=== PATIENT | female | born 1930 | race Caucasian/White ===

== ENCOUNTER → 2016-08-14 | Outpatient (CLI) | payer OTHER ==
[~2016-08-14] MED LIST: ACET-1311; AMLO-110 PO; ASCA500 PO; ASPI81TA28 PO; CALC600T37 PO; CEPH500C; CRAN500C2 PO; DLCS; DOCU100C31 PO; DRV100; DXY100; FERR1TAB13 PO; FLEETS; FLTE; FRRS300; FURO-85 PO; ISOS30TA3 PO; KFL/250 PO; LACT10SO17; LISI-461 PO; LSX20; MCTP EXT; MED PASS; METAMUCIL; METH1TAB66 PO; METO50TA7 PO; MORP15TA PO; MORP15TA19 PO; MULT-922 PO; OXYB5TAB74 PO; PANT40TA; POTA10CA28; POTA10CA28 PO; PRLSR20 PO; PROM1SUP19; PROM25TA; PROSTAT; PROVENTIL MDI; STRESS; TRAM-10; [UNRECOGNIZED DRUG - OTHER]; [UNRECOGNIZED DRUG - OTHER]
[2016-08-14 13:13] LABS: BASO % 0.6 %; BASO ABS # 0.05 K/uL (0-0.2); COMPLETE YES; EOS % 1.5 %; HEMATOCRIT 42.3 % (37-47); IG% 0.1 %; LYMPH % 19.9 %; LYMPH ABS # 1.64 K/uL (1.2-3.4); MEAN CELL VOLUME 85.6 fL (80-100); MEAN CORPUSCULAR HEMOGLOBIN 27.9 pg (25-34); MEAN CORPUSCULAR HGB CONC 32.6 g/dl (32-36); MEAN PLATELET VOLUME 10.3 fL (7.4-10.4); MONO % 5.7 %; NEUT % 72.2 %; PLATELET COUNT 338 K/uL (130-400); RED BLOOD COUNT 4.94 M/uL (4.2-5.4); WHITE BLOOD COUNT 8.25 K/uL (4.8-10.8)
[2016-08-14 13:20] LABS: ALT/SGPT 13 U/L (12-78); BLOOD UREA NITROGEN 15 mg/dl (7-18); BUN/CREATININE RATIO 13.9 (10-20); CALCIUM 8.7 mg/dl (8.5-10.1); CARBON DIOXIDE 25 mmol/L (21-32); CHLORIDE 105 mmol/L (98-107); GLUCOSE 112 mg/dl (70-99); SODIUM 140 mmol/L (136-145)
[2016-08-14 13:23] LABS: ALB/GLOB RATIO 0.9 (0.9-2); ALKALINE PHOSPHATASE 118 U/L (45-117); AST/SGOT 16 U/L (15-37); CHOLESTEROL 145 mg/dl (0-200); CHOLESTEROL/HDL RATIO 2.5; HDL CHOLESTEROL 59 mg/dl; LDL CHOLESTEROL CALCULATED 59 mg/dl; TRIGLYCERIDES 137 mg/dl (0-150); VERY LOW DENSITY LIPOPROT CALC 27 mg/dl
== END | disposition home or self-care (01) ==
LOC: C.LAB1850 11:36
PROVIDERS: ATTEND Internal Medicine
DX: G89.29 Other chronic pain (principal); I10 Essential (primary) hypertension

== ENCOUNTER 2016-09-29 21:16 | Inpatient (IN) | payer OTHER ==
[~2016-09-29] VITALS: Ht 160 cm; Wt 79.8 kg
[~2016-09-29 21:16] MED LIST changes: -AMLO-110 PO; -ASCA500 PO; -ASPI81TA28 PO; -CALC600T37 PO; -CRAN500C2 PO; -DOCU100C31 PO; -FERR1TAB13 PO; -FURO-85 PO; -KFL/250 PO; -MCTP EXT; -METH1TAB66 PO; -MORP15TA PO; -MORP15TA19 PO; -MULT-922 PO; -OXYB5TAB74 PO; -POTA10CA28 PO; -PRLSR20 PO
[2016-09-29 21:53] LABS: BASO % 0.2 %; BASO ABS # 0.03 K/uL (0-0.2); COMPLETE YES; EOS % 0.3 %; HEMATOCRIT 41.6 % (37-47); IG% 0.4 %; LYMPH % 13.9 %; LYMPH ABS # 1.92 K/uL (1.2-3.4); MEAN CELL VOLUME 84.6 fL (80-100); MEAN CORPUSCULAR HEMOGLOBIN 28.5 pg (25-34); MEAN CORPUSCULAR HGB CONC 33.7 g/dl (32-36); MEAN PLATELET VOLUME 10.3 fL (7.4-10.4); MONO % 7.6 %; NEUT % 77.6 %; PLATELET COUNT 334 K/uL (130-400); RED BLOOD COUNT 4.92 M/uL (4.2-5.4); WHITE BLOOD COUNT 13.86 K/uL (4.8-10.8)
[2016-09-29] MEDS ORDERED: DTR/5 PO (22:02)
[2016-09-29] MEDS ORDERED: MORP15TA19 PO (22:02)
[2016-09-29] MEDS ORDERED: MORP15TA PO (22:02)
[2016-09-29] MEDS ORDERED: AMLO-110 PO (22:02)
[2016-09-29] MEDS ORDERED: PRLSR20 PO (22:02)
[2016-09-29] MEDS ORDERED: FURO-85 PO (22:02)
[2016-09-29] MEDS ORDERED: CALC600T37 PO (22:02)
[2016-09-29] MEDS ORDERED: ASPI81TA28 PO (22:02)
[2016-09-29] MEDS ORDERED: DOCU100C31 PO (22:02)
[2016-09-29] MEDS ORDERED: MULT-922 PO (22:02)
[2016-09-29] MEDS ORDERED: CRAN500C2 PO (22:02)
[2016-09-29] MEDS ORDERED: METH1TAB66 PO (22:02)
[2016-09-29] MEDS ORDERED: POTA10CA28 PO (22:02)
[2016-09-29] MEDS ORDERED: FERR1TAB13 PO (22:02)
[2016-09-29] MEDS ORDERED: ASCA500 PO (22:02)
[2016-09-29 22:05] LABS: INR 1.1 (0.9-1.1); PARTIAL THROMBOPLASTIN RATIO 1.1; PROTHROMBIN TIME (PATIENT) 12.2 SECONDS (9.0-12.0)
[2016-09-29 22:12] LABS: BUN/CREATININE RATIO 28.9 (10-20); CALCIUM 8.5 mg/dl (8.5-10.1); MAGNESIUM 2.5 mg/dl (1.8-2.4); POTASSIUM 3.5 mmol/L (3.5-5.1)
[2016-09-29 22:22] LABS: THYROID STIMULATING HORMONE 2.67 uIu/ml (0.300-4.500)
--- NOTE | 2016-09-29 22:42 | DIAGNOSTIC IMAGING REPORT ---
LEFT FEMUR 2 VIEWS ROUTINE, LEFT KNEE 1 OR 2 VIEWS ROUTINE CLINICAL HISTORY: fall. Left leg and knee pain. COMPARISON STUDY: None. FINDINGS: The bones are osteopenic. Soft tissue swelling at the knee with a small lipohemarthrosis. The proximal femur is intact. No dislocation. There is impacted and slightly comminuted fracture at the distal metaphysis of the left femur. This does not appear to extend to the articular surface. There are essentially nondisplaced oblique fractures within the proximal metaphysis of the tibia and fibula. These do not extend to the articular surface. There is greater than expected sclerosis within the distal left femur. This raises the possibility of a bone infarct. IMPRESSION: Left distal femur, proximal tibia, and proximal fibular fractures as described above. Electronically signed by: Austyn Cox M.D. 09/29/2016 10:40 PM Dictated Date/Time: 09/29/2016 10:36 PM
--- NOTE | 2016-09-29 22:43 | DIAGNOSTIC IMAGING REPORT ---
CHEST ONE VIEW PORTABLE HISTORY: Fall. EVALUATE WEAKNESS COMPARISON: Chest 11/17/2005. FINDINGS: The heart is mildly enlarged. This is improved. Small linear scarlike density at the left lung base. Otherwise, the lungs are clear. No pleural effusions. No pneumothorax. Mildly tortuous thoracic aorta, unchanged. IMPRESSION: Mild cardiomegaly which is improved. Otherwise, no acute process within the chest. Electronically signed by: Austyn Cox M.D. 09/29/2016 10:42 PM Dictated Date/Time: 09/29/2016 10:41 PM
[2016-09-29] MEDS ORDERED: SODIUM CHLORIDE 0.9% 1000ML 1,000 ML IV STA (22:48)
[2016-09-30] VITALS (15 sets, daily range): BP systolic 81–100; BP diastolic 51–68; PULSE 61–113; TEMP 35.9–36.5; O2SAT 93–99; Ht 160 cm; Wt 79.8 kg
[2016-09-30] MEDS ORDERED: ONDANSETRON INJ 2 MG/ML 2 ML VIAL IV PRN
--- NOTE | 2016-09-30 00:15 | EMERGENCY ROOM VISIT NOTE ---
History Report prepared by Eric: Vicki Gonzalez Under the Supervision of: Dr. Matt Gonzalez M.D. First contact with patient: 21:19 Chief Complaint: LEG PAIN,LEG INJURY Stated Complaint: LEG PAIN History of Present Illness The patient is an 85 year old female who presents to the Emergency Room with complaints of a sudden fall that occurred around 1200 today. Per EMS, the patient had fallen while being lifted from stand assist chair around 1200 today. The patient has a history of paraplegia, and her daughters note that the patient does not use her legs at all. The patient denies any leg pain. The patient's daughters deny the patient having any previous leg injuries or seeing any orthopedic surgeon in the area. The patient notes bilateral shoulder pain due to being lifted after the fall. The patient's daughter notes that the patient has been taking increased ibuprofen this past week and has been having hemoptysis. The patient's daughter notes that the patient has had a decrease in appetite recently. She states that the patient's catheter has recently been leaking, and the patient is unsure of the last day it was changed. The patient notes a history of atrial fibrillation. Pt denies LOC, headache, visual changes, neck pain, chest pain, breathing difficulties, nausea , vomiting, abdominal pain, back pain, numbness, weakness, open wounds, active bleeding, melena, hematochezia, or other complaints. Source of History: patient, family (daughters), EMS Onset: 1200 today Position: other (global) Quality: other (fall) Timing: other (sudden) Note: Associated Symptoms: bilateral shoulder pain, hemoptysis, decrease in appetite. Review of Systems See HPI for pertinent positives and negatives. A total of ten systems were reviewed and were otherwise negative. Past Medical & Surgical Medical Problems: (1) Atrial fibrillation (2) Fracture of distal femur (3) Fracture of proximal end of tibia and fibula Family History Noncontributory secondary to age. Social History Marital Status: single Occupation Status: retired Current/Historical Medications Scheduled Amlodipine (Norvasc), 5 MG PO QAM Ascorbic Acid (Vitamin C), 500 MG PO DAILY Aspirin (Aspirin Ec), 81 MG PO DAILY Calcium (Calcium), 600 MG PO DAILY Cranberry (Vaccinium Macrocarp (Cranberry), 500 MG PO DAILY Docusate Sodium (Docusate Sodium), 250 MG PO DAILY Ferrous Sulfate (Kp Ferrous Sulfate), 1 TAB PO TID Furosemide (Lasix), 20 MG PO QAM Isosorbide Mononitrate Ext Rel (Imdur Ext Rel), 30 MG PO QAM Lisinopril (Zestril), 10 MG PO QAM Methylcellulose (Laxative) (Fiber Therapy), 500 MG PO DAILY Metoprolol Succ (Toprol Xl) (Toprol-Xl), 50 MG PO QAM Multiple Vitamins W/ Minerals (Multivitamin Adults), 1 TAB PO DAILY Omeprazole (Prilosec), 20 MG PO DAILY Oxybutynin Chloride (Ditropan), 5 MG PO BID Potassium Chloride (Micro-K Ext Rel), 10 MEQ PO BID Scheduled PRN Morphine Cont Rel (Ms Contin), 15 MG PO Q12 PRN for Pain Morphine Sulfate Ir (Morphine Sulfate Ir), 15 MG PO QAM PRN for Pain Allergies Coded Allergies: Oxycodone (Verified Allergy, Severe, "LOOPEY"-CONFUSED, 09/29/16) Physical Exam Vital Signs Date Time Temp Pulse Resp B/P Pulse Ox O2 Delivery O2 Flow Rate FiO2 09/29/16 23:41 95 20 111/58 Room Air 09/29/16 23:09 87/72 09/29/16 22:42 111 18 82/54 94 Room Air 09/29/16 21:47 95 Room Air 09/29/16 21:29 116 09/29/16 21:23 36.6 108 16 114/73 96 Room Air Physical Exam GENERAL: Awake, alert, tired-appearing, in no distress HENT: Normocephalic, atraumatic. Oropharynx unremarkable. EYES: Normal conjunctiva. Sclera non-icteric. NECK: Supple. No nuchal rigidity. FROM. No JVD. RESPIRATORY: Clear to auscultation. CARDIAC: Irregular rhythm, tachycardic rate. Extremities warm and well perfused. Pulses equal. ABDOMEN: Soft, non-distended. No tenderness to palpation. No rebound or guarding. No masses. RECTAL: Deferred. MUSCULOSKELETAL: Chest examination reveals no tenderness. The back is symmetrical on inspection without obvious abnormality. There is no CVA tenderness to palpation. No joint edema. LOWER EXTREMITIES: Cyanosis discoloration to feet bilaterally. No tenderness to the left leg. Ecchymosis over the proximal lower left leg medially. Laxity to varus and valgus strain of the left knee. crepitus noted. Good distal pulses. NEURO: Normal sensorium. No sensory or motor deficits noted. SKIN: No rash or jaundice noted. Medical Decision & Procedures Laboratory Results 09/29/16 21:34 Red Blood Count 4.92, Mean Corpuscular Volume 84.6, Mean Corpuscular Hemoglobin 28.5, Mean Corpuscular Hemoglobin Concent 33.7, Mean Platelet Volume 10.3, Neutrophils (%) (Auto) 77.6, Lymphocytes (%) (Auto) 13.9, Monocytes (%) (Auto) 7.6, Eosinophils (%) (Auto) 0.3, Basophils (%) (Auto) 0.2, Neutrophils # (Auto) 10.76, Lymphocytes # (Auto) 1.92, Monocytes # (Auto) 1.06, Eosinophils # (Auto) 0.04, Basophils # (Auto) 0.03 09/29/16 21:34 Test 09/29/16 21:34 White Blood Count 13.86 K/uL (4.8-10.8) Red Blood Count 4.92 M/uL (4.2-5.4) Hemoglobin 14.0 g/dL (12.0-16.0) Hematocrit 41.6 % (37-47) Mean Corpuscular Volume 84.6 fL (80-100) Mean Corpuscular Hemoglobin 28.5 pg (25-34) Mean Corpuscular Hemoglobin Concent 33.7 g/dl (32-36) Platelet Count 334 K/uL (130-400) Mean Platelet Volume 10.3 fL (7.4-10.4) Neutrophils (%) (Auto) 77.6 % Lymphocytes (%) (Auto) 13.9 % Monocytes (%) (Auto) 7.6 % Eosinophils (%) (Auto) 0.3 % Basophils (%) (Auto) 0.2 % Neutrophils # (Auto) 10.76 K/uL (1.4-6.5) Lymphocytes # (Auto) 1.92 K/uL (1.2-3.4) Monocytes # (Auto) 1.06 K/uL (0.11-0.59) Eosinophils # (Auto) 0.04 K/uL (0-0.5) Basophils # (Auto) 0.03 K/uL (0-0.2) RDW Standard Deviation 53.2 fL (36.4-46.3) RDW Coefficient of Variation 17.0 % (11.5-14.5) Immature Granulocyte % (Auto) 0.4 % Immature Granulocyte # (Auto) 0.05 K/uL (0.00-0.02) Prothrombin Time 12.2 SECONDS (9.0-12.0) Prothromb Time International Ratio 1.1 (0.9-1.1) Activated Partial Thromboplast Time 28.7 SECONDS (21.0-31.0) Partial Thromboplastin Ratio 1.1 Anion Gap 13.0 mmol/L (3-11) Est Creatinine Clear Calc Drug Dose 19.9 ml/min Estimated GFR () 25.6 Estimated GFR (Non- 22.0 BUN/Creatinine Ratio 28.9 (10-20) Calcium Level 8.5 mg/dl (8.5-10.1) Magnesium Level 2.5 mg/dl (1.8-2.4) Total Bilirubin 0.7 mg/dl (0.2-1) Direct Bilirubin 0.3 mg/dl (0-0.2) Aspartate Amino Transf (AST/SGOT) 110 U/L (15-37) Alanine Aminotransferase (ALT/SGPT) 49 U/L (12-78) Alkaline Phosphatase 95 U/L (45-117) Total Protein 7.0 gm/dl (6.4-8.2) Albumin 3.0 gm/dl (3.4-5.0) Lipase 76 U/L (73-393) Thyroid Stimulating Hormone (TSH) 2.670 uIu/ml (0.300-4.500) Laboratory results reviewed by me Medications Administered Medications (Trade) Dose Ordered Sig/Adam Route Start Time Stop Time Status Last Admin Dose Admin Sodium Chloride (Nss 1000ml) 1,000 ml @ 999 mls/hr Q1H1M STAT IV 09/29/16 22:48 09/29/16 23:48 DC 09/29/16 22:48 999 MLS/HR ECG Indication: other (hx of atrial fibrillation) Rate (beats per minute): 107 Rhythm: atrial fibrillation (with RVR) Findings: no acute ischemic change, no ectopy ED Course 2127: The patient was evaluated in room A2. A complete history and physical exam was performed. 2220: I reevaluated the patient and she is resting comfortably. Medical Decision Triage Nursing notes reviewed. The patient's presentation and history were concerning for an accident a fall. Etiologies such as soft tissue injury, fracture, dislocation, neurovascular compromise, compartment syndrome, electrolyte abnormality, infection, as well as others were entertained. The patient patient was evaluated. Her left leg examination was very concerning. She was in A. fib as well. The patient underwent x-ray imaging and this revealed a fracture of the distal femur, proximal fibula, and proximal tibia. She was placed in a knee immobilizer. ECG revealed A. fib. The blood pressure was mildly low and the patient was given IV fluids. She responded well to this. Her CBC revealed mild leukocytosis. Chemistry panel revealed dehydration. Urinalysis was ordered but was pending. Consultation was made with Dr. Louise at 2250 hrs. He returned the call at 2253. I discussed case. He agreed with the knee immobilizer. He will see the patient in consultation. The patient was reassessed at 2300 hrs. and informed. She was reassessed again at 2320. A consultation was placed with Dr. Master Ponce at 2325. I discussed case with him at 2330. He will see the patient for admission. The patient did not request any analgesia as she has her pre- existing neurologic issues and could not feel the fractures. The chart was completed utilizing [employer] Speech voice recognition software. Grammatical errors, random word insertions, pronoun errors, and incomplete sentences are an occasional consequence of this system due to software limitations, ambient noise, and hardware issues. Any formal questions or concerns about the content, text, or information contained within the body of this dictation should be directly addressed to the physician for clarification. Impression Primary Impression: Fracture of distal femur Additional Impressions: Fracture of proximal end of tibia and fibula Atrial fibrillation Dehydration Scribe Attestation The scribe's documentation has been prepared under my direction and personally reviewed by me in its entirety. I confirm that the note above accurately reflects all work, treatment, procedures, and medical decision making performed by me. Departure Information Dispostion Being Evaluated By Hospitalist Referrals ,Oscar Franz M.D. (PCP) Patient Instructions My [facility] Problem Qualifiers
[2016-09-30] MEDS: SODIUM CHLORIDE 0.9% 1000ML 1,000 ML IV SCH ×3 (02:24→22:43)
[2016-09-30] MEDS: NITROGLYCERIN OINT 2% 1GM PACKET EXT SCH ×4 (04:00→22:00)
--- NOTE | 2016-09-30 05:11 | History and Physical ---
History & Physical Date & Time of Service: Sep 30, 2016 at 04:57 Chief Complaint: Fx Of Distal Femur,Fx Of Proximal End Tibia/Fibula Primary Care Physician: Oscar Prieto M.D. History of Present Illness Source: patient, family The patient is an 85-year-old female, with history of paraplegia, that fell while being lifted from a stand assist chair around 1200 hrs. today. Her left leg was noted by EMS to be more freely moving in the lower extremity. She has not had any sensation in her lower extremities, and therefore does not steroids any leg pain. The patient's daughters note that she's had a decreased appetite recently, has been taking more ibuprofen during the past week. Patient also has history of atrial fibrillation. Past Medical/Surgical History Medical Problems: (1) Atrial fibrillation Status: Chronic Social History Smoking Status: Never Smoker Smokeless Tobacco Use: No Alcohol Use: none Drug Use: none Marital Status: single Occupational Status: retired Immunizations History of Influenza Vaccine: Unknown History of Tetanus Vaccine?: Unknown History of Pneumococcal: Unknown History of Hepatitis B Vaccine: Unknown Multi-Drug Resistant Organisms History of MDRO: No Allergies Coded Allergies: Oxycodone (Verified Allergy, Severe, "LOOPEY"-CONFUSED, 09/29/16) Home Medications Scheduled Amlodipine (Norvasc), 5 MG PO QAM Ascorbic Acid (Vitamin C), 500 MG PO DAILY Aspirin (Aspirin Ec), 81 MG PO DAILY Calcium (Calcium), 600 MG PO DAILY Cranberry (Vaccinium Macrocarp (Cranberry), 500 MG PO DAILY Docusate Sodium (Docusate Sodium), 250 MG PO DAILY Ferrous Sulfate (Kp Ferrous Sulfate), 1 TAB PO TID Furosemide (Lasix), 20 MG PO QAM Isosorbide Mononitrate Ext Rel (Imdur Ext Rel), 30 MG PO QAM Lisinopril (Zestril), 10 MG PO QAM Methylcellulose (Laxative) (Fiber Therapy), 500 MG PO DAILY Metoprolol Succ (Toprol Xl) (Toprol-Xl), 50 MG PO QAM Multiple Vitamins W/ Minerals (Multivitamin Adults), 1 TAB PO DAILY Omeprazole (Prilosec), 20 MG PO DAILY Oxybutynin Chloride (Ditropan), 5 MG PO BID Potassium Chloride (Micro-K Ext Rel), 10 MEQ PO BID Scheduled PRN Morphine Cont Rel (Ms Contin), 15 MG PO Q12 PRN for Pain Morphine Sulfate Ir (Morphine Sulfate Ir), 15 MG PO QAM PRN for Pain Review of Systems The patient denies chest pain, palpitations, shortness of breath, cough, lower extremity swelling, vision change, hearing change, sore throat, fevers, chills, sweats, weight change, fatigue, nausea, vomiting, abdominal pain, pelvic pain, blood in urine or stool, dysuria, urinary frequency or urgency, lightheadedness , dizziness, headache, memory loss, rash, night sweats, or allergy symptoms. The review of systems is otherwise negative other than for that already noted above, and at least 10 systems have been reviewed. Physical Exam Vital Signs Date Time Temp Pulse Resp B/P Pulse Ox O2 Delivery O2 Flow Rate FiO2 09/30/16 03:03 84 94/56 09/30/16 01:55 35.9 102 16 100/58 94 Nasal Cannula 2.0 09/30/16 01:18 111 20 108/57 96 09/29/16 23:41 95 20 111/58 Room Air 09/29/16 23:09 87/72 09/29/16 22:42 111 18 82/54 94 Room Air 09/29/16 21:47 95 Room Air 09/29/16 21:29 116 09/29/16 21:23 36.6 108 16 114/73 96 Room Air The patient is awake, well-developed and adequately nourished, alert and oriented 3, normocephalic and atraumatic, very hard of hearing, lying in bed and in no acute distress. HEENT--PERRL, EOMI, mucous membranes and oropharynx dry. Neck--supple, no JVD or bruits, thyroid normal, trachea midline, no adenopathy. Heart--normal S1 and S2, no extra beats, no murmurs, rubs or gallops. Lungs--clear bilaterally with good air movement, no respiratory distress, no accessory muscle use. Abdomen--normal bowel sounds and soft, nontender and nondistended, no hernias or masses, no organomegaly. Extremities--no cyanosis, clubbing or edema. There are good distal pulses b/l. Dermatologic--normal skin turgor, normal color, warm and dry, no abnormal lymph nodes, no rash. Neurologic--cranial nerves II through XII grossly intact, paraplegia. Rheumatologic--laxity of left lower extremity at the knee Psychiatric--normal affect. Diagnostics Laboratory Results Results Past 24 Hours Test 09/29/16 21:34 09/30/16 04:44 Range/Units White Blood Count 13.86 4.8-10.8 K/uL Red Blood Count 4.92 4.2-5.4 M/uL Hemoglobin 14.0 12.0-16.0 g/dL Hematocrit 41.6 37-47 % Mean Corpuscular Volume 84.6 80-100 fL Mean Corpuscular Hemoglobin 28.5 25-34 pg Mean Corpuscular Hemoglobin Concent 33.7 32-36 g/dl Platelet Count 334 130-400 K/uL Mean Platelet Volume 10.3 7.4-10.4 fL Neutrophils (%) (Auto) 77.6 % Lymphocytes (%) (Auto) 13.9 % Monocytes (%) (Auto) 7.6 % Eosinophils (%) (Auto) 0.3 % Basophils (%) (Auto) 0.2 % Neutrophils # (Auto) 10.76 1.4-6.5 K/uL Lymphocytes # (Auto) 1.92 1.2-3.4 K/uL Monocytes # (Auto) 1.06 0.11-0.59 K/uL Eosinophils # (Auto) 0.04 0-0.5 K/uL Basophils # (Auto) 0.03 0-0.2 K/uL RDW Standard Deviation 53.2 36.4-46.3 fL RDW Coefficient of Variation 17.0 11.5-14.5 % Immature Granulocyte % (Auto) 0.4 % Immature Granulocyte # (Auto) 0.05 0.00-0.02 K/uL Prothrombin Time 12.2 9.0-12.0 SECONDS Prothromb Time International Ratio 1.1 0.9-1.1 Activated Partial Thromboplast Time 28.7 21.0-31.0 SECONDS Partial Thromboplastin Ratio 1.1 Sodium Level 135 136-145 mmol/L Potassium Level 3.5 3.5-5.1 mmol/L Chloride Level 98 98-107 mmol/L Carbon Dioxide Level 24 21-32 mmol/L Anion Gap 13.0 3-11 mmol/L Blood Urea Nitrogen 58 7-18 mg/dl Creatinine 2.00 0.60-1.20 mg/dl Est Creatinine Clear Calc Drug Dose 19.9 ml/min Estimated GFR () 25.6 Estimated GFR (Non- 22.0 BUN/Creatinine Ratio 28.9 10-20 Random Glucose 161 70-99 mg/dl Calcium Level 8.5 8.5-10.1 mg/dl Magnesium Level 2.5 1.8-2.4 mg/dl Total Bilirubin 0.7 0.2-1 mg/dl Direct Bilirubin 0.3 0-0.2 mg/dl Aspartate Amino Transf (AST/SGOT) 110 15-37 U/L Alanine Aminotransferase (ALT/SGPT) 49 12-78 U/L Alkaline Phosphatase 95 45-117 U/L Total Protein 7.0 6.4-8.2 gm/dl Albumin 3.0 3.4-5.0 gm/dl Lipase 76 73-393 U/L Thyroid Stimulating Hormone (TSH) 2.670 0.300-4.500 uIu/ml Microbiology Results 09/30/16 Urine Culture, Received Pending Diagnostic Radiology Patient Name: TC TOBAR Unit Number: [id number] Dictated: 09/29/162235 Transcribed: 09/29/162235 [facility]neumed Printed Date/Time: [~ rep prt dt]/[~ rep prt tm] [~ rep ct labl] - [~ rep ct ivnm] [facility] [place] [address] Dictated: 09/29/162235 Transcribed: 09/29/162235 [place] Printed Date/Time: [~ rep prt dt]/[~ rep prt tm] [~ rep ct labl] - [~ rep ct ivnm] LEFT FEMUR 2 VIEWS ROUTINE, LEFT KNEE 1 OR 2 VIEWS ROUTINE CLINICAL HISTORY: fall. Left leg and knee pain. COMPARISON STUDY: None. FINDINGS: The bones are osteopenic. Soft tissue swelling at the knee with a small lipohemarthrosis. The proximal femur is intact. No dislocation. There is impacted and slightly comminuted fracture at the distal metaphysis of the left femur. This does not appear to extend to the articular surface. There are essentially nondisplaced oblique fractures within the proximal metaphysis of the tibia and fibula. These do not extend to the articular surface. There is greater than expected sclerosis within the distal left femur. This raises the possibility of a bone infarct. IMPRESSION: Left distal femur, proximal tibia, and proximal fibular fractures as described above. Electronically signed by: Austyn Cox M.D. 09/29/2016 10:40 PM Dictated Date/Time: 09/29/2016 10:36 PM The status of this report is Signed. Draft = Not yet reviewed or approved by Radiologist. Signed = Reviewed and approved by Radiologist. <AttendingPhy></AttendingPhy> <FamilyPhy>Oscar Prieto M.D.</FamilyPhy> < PrimaryPhy>Oscar Prieto M.D.</PrimaryPhy> <UnitNumber>[id number]</UnitNumber > <VisitNumber>[id number]</VisitNumber> <PatientName>TC TOBAR</ PatientName> <DateOfBirth>1930</DateOfBirth> <Location>[facility]</Location> < ServiceDate>09/29/16</ServiceDate> <MNE>ESINDI</MNE> <OrderingPhy>Matt Gonzalez MD</OrderingPhy> <OrderingPhyMNE>f rep ord dr friedman</OrderingPhyMNE> < DictatingPhyMNE>f rep dict dr friedman</DictatingPhyMNE> <CCListMNE>f rep ct idalia</ CCListMNE> <AdmittingPhyMNE>f pt admit dr friedman</AdmittingPhyMNE> <AttendingPhyMNE >f pt attend dr friedman</AttendingPhyMNE> <ConsultingPhyMNE>f pt consult dr friedman</ConsultingPhyMNE> <FamilyPhyMNE>f pt fam dr friedman</FamilyPhyMNE> <OtherPhyMNE>f pt other dr friemdan</OtherPhyMNE> < PrimaryPhyMNE>f pt prim care dr friedman</PrimaryPhyMNE> <ReferringPhyMNE>f pt referring dr friedman</ReferringPhyMNE> [~ rep ct add3]] LEFT FEMUR 2 VIEWS ROUTINE, LEFT KNEE 1 OR 2 VIEWS ROUTINE CLINICAL HISTORY: fall. Left leg and knee pain. COMPARISON STUDY: None. FINDINGS: The bones are osteopenic. Soft tissue swelling at the knee with a small lipohemarthrosis. The proximal femur is intact. No dislocation. There is impacted and slightly comminuted fracture at the distal metaphysis of the left femur. This does not appear to extend to the articular surface. There are essentially nondisplaced oblique fractures within the proximal metaphysis of the tibia and fibula. These do not extend to the articular surface. There is greater than expected sclerosis within the distal left femur. This raises the possibility of a bone infarct. IMPRESSION: Left distal femur, proximal tibia, and proximal fibular fractures as described above. Electronically signed by: Austyn Cox M.D. 09/29/2016 10:40 PM Dictated Date/Time: 09/29/2016 10:36 PM The status Patient Name: TC TOBAR Unit Number: [id number] Dictated: 09/29/162240 Transcribed: 09/29/162240 [facility] Printed Date/Time: [~ rep prt dt]/[~ rep prt tm] [~ rep ct labl] - [~ rep ct ivnm] [facility] [place] [address] Dictated: 09/29/162240 Transcribed: 09/29/162240 [facility] Printed Date/Time: [~ rep prt dt]/[~ rep prt tm] [~ rep ct labl] - [~ rep ct ivnm] HISTORY: Fall. EVALUATE WEAKNESS COMPARISON: Chest 11/17/2005. FINDINGS: The heart is mildly enlarged. This is improved. Small linear scarlike density at the left lung base. Otherwise, the lungs are clear. No pleural effusions. No pneumothorax. Mildly tortuous thoracic aorta, unchanged. IMPRESSION: Mild cardiomegaly which is improved. Otherwise, no acute process within the chest. Electronically signed by: Austyn Cox M.D. 09/29/2016 10:42 PM Dictated Date/Time: 09/29/2016 10:41 PM The status of this report is Signed. Draft = Not yet reviewed or approved by Radiologist. Signed = Reviewed and approved by Radiologist. <AttendingPhy></AttendingPhy> <FamilyPhy>Oscar Prieto M.D.</FamilyPhy> < PrimaryPhy>Oscar Prieto M.D.</PrimaryPhy> <UnitNumber>[id number]</UnitNumber > <VisitNumber>[id number]</VisitNumber> <PatientName>TC TOBAR</ PatientName> <DateOfBirth>1930</DateOfBirth> <Location>[facility]</Location> < ServiceDate>09/29/16</ServiceDate> <MNE>ESINDI</MNE> <OrderingPhy>Matt Gonzalez MD</OrderingPhy> <OrderingPhyMNE>f rep ord dr friedman</OrderingPhyMNE> < DictatingPhyMNE>f rep dict dr friedman</DictatingPhyMNE> <CCListMNE>f rep ct idalia</ CCListMNE> <AdmittingPhyMNE>f pt admit dr friedman</AdmittingPhyMNE> <AttendingPhyMNE >f pt attend dr friedman</AttendingPhyMNE> <ConsultingPhyMNE>f pt consult dr friedman</ConsultingPhyMNE> <FamilyPhyMNE>f pt fam dr friedman</FamilyPhyMNE> <OtherPhyMNE>f pt other dr friedman</OtherPhyMNE> < PrimaryPhyMNE>f pt prim care dr friedman</PrimaryPhyMNE> <ReferringPhyMNE>f pt referring dr friedman</ReferringPhyMNE> EKG EKG is pending at time of dictation. Impression Assessment and Plan Left distal femur fracture/proximal tib fib fracture--patient be kept nothing by mouth except medications. She missed the medical surgical floor. We'll consult is on for orthopedics tonight. She'll be placed on normal saline 100 mils per hour. Hypertension--hold amlodipine 5 mg by mouth every morning, lisinopril 10 mg by mouth every morning, metoprolol succinate 50 mg by mouth every morning, aspirin 81 mg by mouth daily, potassium chloride 10 mEq by mouth twice a day, furosemide 20 mg by mouth every morning. Change Imdur extended release 30 mg by mouth every morning to Nitropaste 1 inch to the anterior chest wall every 6 hours with hold parameters. GERD--change omeprazole 20 mg by mouth daily to pantoprazole 40 mg IV daily. Bladder spasm--hold Ditropan 5 mg by mouth twice a day. Level of Care Med/Surg Advanced Directives Existing Advance Directive: No Existing Living Will: No Existing Power of Manager Of Corporate: No Resuscitation Status FULL RESUSCITATION VTE Prophylaxis VTE Risk Assessment Done? Y/N: Yes Risk Level: High Given or contraindicated: SCD's
[2016-09-30 06:41] LABS: BASO % 0.2 %; BASO ABS # 0.03 K/uL (0-0.2); COMPLETE YES; EOS % 0.8 %; IG% 0.5 %; LYMPH ABS # 2.14 K/uL (1.2-3.4); MEAN CELL VOLUME 85.2 fL (80-100); MEAN CORPUSCULAR HEMOGLOBIN 27.8 pg (25-34); MEAN CORPUSCULAR HGB CONC 32.6 g/dl (32-36); MEAN PLATELET VOLUME 10.3 fL (7.4-10.4); MONO % 7.2 %; NEUT % 75.3 %; PLATELET COUNT 300 K/uL (130-400); RED BLOOD COUNT 4.46 M/uL (4.2-5.4); WHITE BLOOD COUNT 13.39 K/uL (4.8-10.8)
[2016-09-30 07:06] LABS: BUN/CREATININE RATIO 27.9 (10-20); MAGNESIUM 2.6 mg/dl (1.8-2.4); POTASSIUM 3.9 mmol/L (3.5-5.1)
[2016-09-30] MEDS: ACETAMINOPHEN 325 MG TAB PO PRN (08:26)
--- NOTE | 2016-09-30 08:39 | Hospitalist Progress Note ---
Hospitalist Progress Note Date of Service Sep 30, 2016. Subjective Pt evaluation today including: conversation w/ patient, conversation w/ family , physical exam, chart review, lab review, review of studies, review of inpatient medication list Pain: Minimal left extremity pain PO Intake: NPO Voiding: garcia catheter in place (chronic) The patient was seen and examined this morning. Patient reports feeling minimal left lower extremity pain, with past medical history of paraplegia. She has only needed to take one tylenol tablet for pain this morning. Explains that she does not want surgical intervention, and that she would like to explore other options. Patient is currently in a brace and she states that this is comfortable. Her two daughters are present at bedside with her and are in agreement with this plan. She chronically has an indwelling Garcia catheter , and is changed on a monthly basis by home health nurses. The patient is a resident of an assisted living facility for the past 10 years. Caregivers currently are in her home from 8 AM to 1 PM, and she has already instructed her daughters to find more assistance for her. Additional Comments: Constitutional: No fever, chills, sweats, fatigue or weakness Eyes: No diplopia, no changes in vision ENT: No sore throat, tinnitus, or trouble swallowing Respiratory: No shortness of breath, No dyspnea at rest or on exertion, no cough or sputum, does not wear supplemental O2 Cardiovascular: No chest pain, palpitations, or flutter Abdomen: No pain, No constipation, No diarrhea, No nausea, No vomiting Musculoskeletal: + Left lower extremity pain as described in HPI, No calf pain , No joint pain, No swelling Genitourinary : Chronic indwelling catheter Neurologic: No numbness/tingling, no difficulty with ambulation, no sensory or motor deficits Psychiatric: No depression or anxiety symptoms Endocrine: No fatigue, No weight changes Integumentary: No itch, No rash Objective Vital Signs Date Time Temp Pulse Resp B/P Pulse Ox O2 Delivery O2 Flow Rate FiO2 09/30/16 08:27 36.5 89 18 97/59 99 Nasal Cannula 2.0 09/30/16 03:30 36.5 09/30/16 03:03 84 94/56 09/30/16 01:55 35.9 102 16 100/58 94 Nasal Cannula 2.0 09/30/16 01:30 Nasal Cannula 2.0 09/30/16 01:18 111 20 108/57 96 09/29/16 23:41 95 20 111/58 Room Air 09/29/16 23:09 87/72 09/29/16 22:42 111 18 82/54 94 Room Air 09/29/16 21:47 95 Room Air 09/29/16 21:29 116 09/29/16 21:23 36.6 108 16 114/73 96 Room Air Physical Exam Notes: General: awake, alert, no apparent distress, +hard of hearing, + obese Head: Normocephalic, atraumatic ENT: PERRL, EOMI, no pharyngeal exudate, mucous membranes dry Chest: Clear to auscultation, on room air, no adventitious breath sounds Cardiac: Regular rate and rhythm, no murmur, no JVD, normal peripheral pulses, good capillary refill Abdominal: NABS x 4, + obese, NTTP, no rebound tenderness or guarding Extremities: Left lower extremity with brace intact, patient has sensation to his feet bilaterally the R>L, calfs nontender to palpation Psych: Normal mood and affect Neuro: AAO x 3, diminished strength in upper extremities 4/5 but the left is weaker than the right, + paraplegic, + diminished sensation to light touch in bilateral lower extremity Laboratory Results Last 24 Hours Test 09/29/16 21:34 09/30/16 06:02 White Blood Count 13.86 K/uL 13.39 K/uL Red Blood Count 4.92 M/uL 4.46 M/uL Hemoglobin 14.0 g/dL 12.4 g/dL Hematocrit 41.6 % 38.0 % Mean Corpuscular Volume 84.6 fL 85.2 fL Mean Corpuscular Hemoglobin 28.5 pg 27.8 pg Mean Corpuscular Hemoglobin Concent 33.7 g/dl 32.6 g/dl Platelet Count 334 K/uL 300 K/uL Mean Platelet Volume 10.3 fL 10.3 fL Neutrophils (%) (Auto) 77.6 % 75.3 % Lymphocytes (%) (Auto) 13.9 % 16.0 % Monocytes (%) (Auto) 7.6 % 7.2 % Eosinophils (%) (Auto) 0.3 % 0.8 % Basophils (%) (Auto) 0.2 % 0.2 % Neutrophils # (Auto) 10.76 K/uL 10.07 K/uL Lymphocytes # (Auto) 1.92 K/uL 2.14 K/uL Monocytes # (Auto) 1.06 K/uL 0.97 K/uL Eosinophils # (Auto) 0.04 K/uL 0.11 K/uL Basophils # (Auto) 0.03 K/uL 0.03 K/uL RDW Standard Deviation 53.2 fL 53.6 fL RDW Coefficient of Variation 17.0 % 17.1 % Immature Granulocyte % (Auto) 0.4 % 0.5 % Immature Granulocyte # (Auto) 0.05 K/uL 0.07 K/uL Prothrombin Time 12.2 SECONDS Prothromb Time International Ratio 1.1 Activated Partial Thromboplast Time 28.7 SECONDS Partial Thromboplastin Ratio 1.1 Sodium Level 135 mmol/L 136 mmol/L Potassium Level 3.5 mmol/L 3.9 mmol/L Chloride Level 98 mmol/L 102 mmol/L Carbon Dioxide Level 24 mmol/L 24 mmol/L Anion Gap 13.0 mmol/L 10.0 mmol/L Blood Urea Nitrogen 58 mg/dl 56 mg/dl Creatinine 2.00 mg/dl 2.00 mg/dl Est Creatinine Clear Calc Drug Dose 19.9 ml/min 19.8 ml/min Estimated GFR () 25.6 25.6 Estimated GFR (Non- 22.0 22.0 BUN/Creatinine Ratio 28.9 27.9 Random Glucose 161 mg/dl 121 mg/dl Calcium Level 8.5 mg/dl 8.0 mg/dl Magnesium Level 2.5 mg/dl 2.6 mg/dl Total Bilirubin 0.7 mg/dl Direct Bilirubin 0.3 mg/dl Aspartate Amino Transf (AST/SGOT) 110 U/L Alanine Aminotransferase (ALT/SGPT) 49 U/L Alkaline Phosphatase 95 U/L Total Protein 7.0 gm/dl Albumin 3.0 gm/dl Lipase 76 U/L Thyroid Stimulating Hormone (TSH) 2.670 uIu/ml Assessment and Plan 85 yo F with pmhx of HTN, GERD, bladder spasm now with Left distal femur fracture/proximal tib fib fracture Left distal femur fx/proximal tib fib fracture - Patient reports that she is not interested in surgical intervention, and is on board for medical management only. She is currently in a base with is comfortable for her. She is paraplegic therefore has decreased sensation to pain in the affected leg - Ortho on board - plans to keep the brace - Can resume a normal diet since no surgical intervention, Continue fluids today for BRET - Analgesia with Tylenol BRET on CKD stage II - Cr. elevated at 2.00, bumped from 1.10 baseline - Holding EZIO, other nephrotoxins Hypertension- - hold amlodipine 5 mg QAM, lisinopril 10 mg QAM, metoprolol succinate 50 mg by mouth every morning, aspirin 81 mg daily, potassium chloride 10 mEq BID, furosemide 20 mg QAM - Change Imdur extended release 30 mg by mouth every morning to Nitropaste 1 inch to the anterior chest wall every 6 hours with hold parameters. -The patient has not needed nitropast. - SBP has been in the 80s-90s - will continue to monitor GERD--change omeprazole 20 mg by mouth daily to pantoprazole 40 mg IV daily. Paraplegia - diminished sensation and strength in the lower extremity, decreased motor in the left more so than in the right Bladder spasm- -hold Ditropan 5 mg by mouth twice a day - Chronic indwelling catheter due to paraplegia DVT: ppx Teds, SCDs CODE STATUS: FULL resuscitation Disposition: Patient is from assisted living, caregivers available from 8 AM to 1 PM, family already looking to increase care available to the patient in the assisted living facility, CM to assist with discharge planning
[2016-09-30] MEDS ORDERED: PANTOprazole INJ 40 MG in SYRINGE 0 ML IV SCH (11:00)
[2016-09-30] MEDS ORDERED: SODIUM CHLORIDE 0.9% 500ML 500 ML IV SCH ×2 (12:30→17:30)
--- NOTE | 2016-09-30 13:14 | ORTHOPEDIC PROGRESS NOTE ---
DATE: 09/30/2016 SUBJECTIVE: The patient is an 85-year-old white female who [facility] was consulted for, for a left distal femur fracture. The patient has a history of paraplegia and the patient was being assisted to the wheelchair and somehow the chair slipped back and she fell to the ground. They had to have EMS come to the house and at that time they were able to get her up with a stand assist chair. She was not having any pain in the lower extremities but was having some pain in the bilateral upper extremities which was felt to be secondary to just not getting the patient lifted up into her chair. On examination of the patient in the Emergency Room, it was noted that she had some ecchymosis over the proximal lower left leg on the medial aspect. She had some obvious laxity with varus-valgus strain and x-rays were ordered of her left leg. It was noted that she had fractures of the distal femur as well as the proximal tibia and proximal fibula. We have been asked to see her for these fractures. OBJECTIVE: The patient is lying in bed and is awake and alert and is hard of hearing, but does understand the conversation when we are talking. Family is present. She obviously has no pain in the lower extremities with her history of paraplegia but does complain of some right axillary discomfort when she does range of motion of her right shoulder. She has an immobilizer on the left knee at this time, which was removed. She does have some ecchymosis noted of the medial aspect, but not grossly so. The leg does not appear to have any gross abnormalities at this time and no further range of motion or ligament testing is done on the left lower extremity due to her fractures. The immobilizer was then placed back on the left lower extremity. No obvious deformities of the right lower extremity. With her upper extremities, she did note some pain in the axilla and what appears to be in the pectoralis muscle, whenever she does forward flexion to about 90-100 degrees. She has pain in the anterior inferior shoulder and along the pectoralis muscle itself. She has no overt pain in the right shoulder itself over the acromion or laterally. There is no overt grinding or crepitus. No pain in the right elbow or wrist. No pain in the left shoulder, left elbow or wrist and she has good strength bilaterally of the upper extremities. Pulses appear equal and she has no neck pain on palpation and has good range of motion of her neck. No chest tenderness on palpation of the anterior chest, denies back pain at this time. ASSESSMENT: Left distal femur, left proximal tibia and left proximal fibular fractures, lower extremity. PLAN: Dr. Mccormick has reviewed the patient's films and history. At this point in time, we will plan on treating these fractures nonoperatively in a Terrie type brace locked in extension. This was discussed with the family and the patient is in agreement that she did not want to have any surgery in the first place. Orthotics will be consulted and we will have them fit her for a [place] type brace and she will need to be in her wheelchair with leg extension, which was discussed with the family as well. Dr. Mccormick will see the patient later today for official consult. SARAN
[2016-09-30 13:16] LABS: HEMATOCRIT 37.3 % (37-47)
[2016-09-30] MEDS: BOOST VANILLA PO SCH ×4 (13:53→20:40)
--- NOTE | 2016-09-30 16:59 | ORTHOPEDIC CONSULTATION ---
DATE OF CONSULTATION: 09/30/2016 DATE OF CONSULTATION: 09/30/2016. HISTORY OF PRESENT ILLNESS: The patient is an 85-year-old female who has history of paraplegia. When questioning her family member she said she was on warfarin and had a bleed or blood clot causing paralysis. She has been this way for 10 years. She uses an assist stand lift device to help her transfer. She was in the process with nurse's aide doing this and ended up fracturing her left femur and tibia. She also has a history of Afib. Pertinent orthopedic medications are aspirin, calcium. Chronic pain meds are MS Contin 15 mg q. 12 hours and morphine sulfate IR q.a.m. p.r.n. PHYSICAL EXAMINATION: Demonstrates that she is comfortable lying in bed. She has a left knee immobilizer in place. She has inflatable heel protectors on bilaterally. She is awake, alert and answers all questions, is hard of hearing. She had no upper extremity trauma. Her neurological exam circulation demonstrates she has good capillary refill both lower extremities. With regard to feeling she says she has better hot cold sensation type feeling on the right than left leg, but she can feel touch to the left leg and she can dorsiflex her left great toe, but cannot plantarflex her left foot. Her right foot she can plantarflex, but has weakness in dorsiflexion. Her x-rays demonstrate an impacted supracondylar fracture of the metaphysis of the left femur with some buckling of the anterior cortex and some impaction of the femoral shaft metaphysis down into the distal fragment with good alignment other than some shortening on AP and lateral views with no particular angulation, no significant displacement. She has a nondisplaced oblique tibia fracture that goes from proximal and medial to the inferior lateral interaction in the metaphysis of the tibia which is nondisplaced and there is a neck fracture of the fibula as well. General alignment is satisfactory on AP and lateral views for a nonambulatory patient. She does have some osteopenia. ASSESSMENT: Left closed femur and proximal tibia and fibula fractures. Discussed with her and her relative who is with her the fracture and the fact that she would not be able to bear weight on this particular type of fracture for 3 months whether we did internal fixation or not treatment options are immobilizing in a brace with knee in full extension and eventually after some healing start some range of motion; however, will keep her nonweightbearing for 3 months. She will have to change her lift status from a stand assist lift to Carolyn lift. Bond brace will be ordered. Surgical option if this treatment is not satisfactory with any loss of reduction or inability to be able to tolerate transfers with a brace would be to do an open reduction internal fixation of the femur fracture with locking plate and screw fixation and a locking plate and screw fixation of tibia fracture. At this time, she has a knee immobilizer in place and a brace was ordered. We are going to pursue conservative treatment and will have to get serial x-rays weekly for the first few weeks to document maintained alignment of the fractures.
[2016-09-30] MEDS ORDERED: NURSING VERBAL MED ORDER ONE ×2 (17:15→18:45)
[2016-09-30] MEDS ORDERED: SODIUM CHLORIDE 0.9% 1000ML 1,000 ML IV SCH (18:45)
[2016-10-01] VITALS (7 sets, daily range): BP systolic 95–120; BP diastolic 55–72; PULSE 83–99; TEMP 36.3–36.6; O2SAT 92–99
[2016-10-01] MEDS: NITROGLYCERIN OINT 2% 1GM PACKET EXT SCH ×4 (03:53→21:30)
[2016-10-01 07:27] LABS: BASO % 0.1 %; BASO ABS # 0.01 K/uL (0-0.2); COMPLETE YES; EOS % 1.4 %; HEMATOCRIT 34.8 % (37-47); IG% 0.8 %; LYMPH % 13.8 %; LYMPH ABS # 1.39 K/uL (1.2-3.4); MEAN CELL VOLUME 85.7 fL (80-100); MEAN CORPUSCULAR HEMOGLOBIN 26.8 pg (25-34); MEAN CORPUSCULAR HGB CONC 31.3 g/dl (32-36); MEAN PLATELET VOLUME 9.9 fL (7.4-10.4); MONO % 9.3 %; NEUT % 74.6 %; PLATELET COUNT 260 K/uL (130-400); RED BLOOD COUNT 4.06 M/uL (4.2-5.4); WHITE BLOOD COUNT 10.05 K/uL (4.8-10.8)
[2016-10-01 08:04] LABS: BUN/CREATININE RATIO 31.6 (10-20); CALCIUM 7.8 mg/dl (8.5-10.1); CREATININE 1.3 mg/dl (0.60-1.20); MAGNESIUM 2.6 mg/dl (1.8-2.4); POTASSIUM 3.9 mmol/L (3.5-5.1)
[2016-10-01] MEDS: SODIUM CHLORIDE 0.9% 1000ML 1,000 ML IV SCH ×2 (08:38→18:48)
[2016-10-01] MEDS: BOOST VANILLA PO SCH ×6 (08:39→21:30)
--- NOTE | 2016-10-01 10:00 | Hospitalist Progress Note ---
Hospitalist Progress Note Date of Service Oct 01, 2016. Subjective Pt evaluation today including: conversation w/ patient, conversation w/ family , physical exam, chart review, lab review, review of studies, review of inpatient medication list Pain: Minimal PO Intake: Garcia cath in place The patient was seen and examined this morning. Pt has two daughters present there at bedside, a different one than yesterday, and the older daughter. She tells me there are 6 children total. Pt states her pain in her left leg doesn' t really hurt at all due to paraplegia. She has concerns about regurgitating a little food after 4-5 bites, and describes it as a burning sensation in her throat. She states this has been going on for some time now, and doesn't take an antacid regularly. Denies chest pain, pressure, or abdominal pain. Constitutional: No chills, No fatigue, No fever Eyes: No diplopia, No redness ENT: No dental problems, No sore throat Respiratory: No dyspnea at rest, No shortness of breath, No wheezing Cardiovascular: No chest pain, No palpitations Abdomen: + problem reported (indigestion), No constipation, No diarrhea, No nausea, No pain, No vomiting Musculoskeletal: + joint pain (left knee very minimal, doesnt feel due to paraplegia), No muscle pain Female : + problem reported (chronic indwelling garcia catheter) Neurologic: No numbness/tingling, No weakness Skin: No itch, No rash Objective Vital Signs Date Time Temp Pulse Resp B/P Pulse Ox O2 Delivery O2 Flow Rate FiO2 10/01/16 07:31 Room Air 10/01/16 06:49 36.5 99 20 95/60 92 Room Air 10/01/16 03:40 92 98/58 95 Room Air 10/01/16 00:15 95 Nasal Cannula 2.0 09/30/16 23:45 88 09/30/16 23:39 36.3 99 16 94/56 93 Room Air 09/30/16 20:38 61 97/65 09/30/16 17:51 90/60 09/30/16 16:24 84/68 09/30/16 16:04 36.3 96 14 95 Nasal Cannula 2.0 09/30/16 16:00 95 Nasal Cannula 2.0 09/30/16 12:00 36.3 99 18 81/51 99 Nasal Cannula 2.0 09/30/16 11:58 88/62 09/30/16 11:57 113 81/51 Physical Exam General Appearance: WD/WN, no apparent distress, + obese Eyes: PERRL, EOMI ENT: pharynx normal, + pertinent finding (hard of hearing) Neck: supple, no JVD Respiratory/Chest: lungs clear, no respiratory distress, no accessory muscle use Cardiovascular: regular rate, rhythm, + systolic murmur Abdomen: normal bowel sounds, non tender, soft Extremities: no calf tenderness, + pedal edema (bilaterally up to knees, 1+ pitting. Left leg in brace. Bilateral legs elevated, heel pads in place, air waffle boots on. ) Neurologic/Psychiatric: alert, normal mood/affect, oriented x 3 Skin: normal color, warm/dry Laboratory Results Last 24 Hours Test 09/30/16 13:08 10/01/16 07:14 Hemoglobin 12.3 g/dL 10.9 g/dL Hematocrit 37.3 % 34.8 % White Blood Count 10.05 K/uL Red Blood Count 4.06 M/uL Mean Corpuscular Volume 85.7 fL Mean Corpuscular Hemoglobin 26.8 pg Mean Corpuscular Hemoglobin Concent 31.3 g/dl Platelet Count 260 K/uL Mean Platelet Volume 9.9 fL Neutrophils (%) (Auto) 74.6 % Lymphocytes (%) (Auto) 13.8 % Monocytes (%) (Auto) 9.3 % Eosinophils (%) (Auto) 1.4 % Basophils (%) (Auto) 0.1 % Neutrophils # (Auto) 7.50 K/uL Lymphocytes # (Auto) 1.39 K/uL Monocytes # (Auto) 0.93 K/uL Eosinophils # (Auto) 0.14 K/uL Basophils # (Auto) 0.01 K/uL RDW Standard Deviation 54.3 fL RDW Coefficient of Variation 17.3 % Immature Granulocyte % (Auto) 0.8 % Immature Granulocyte # (Auto) 0.08 K/uL Sodium Level 144 mmol/L Potassium Level 3.9 mmol/L Chloride Level 112 mmol/L Carbon Dioxide Level 24 mmol/L Anion Gap 8.0 mmol/L Blood Urea Nitrogen 41 mg/dl Creatinine 1.30 mg/dl Est Creatinine Clear Calc Drug Dose 31.1 ml/min Estimated GFR () 43.0 Estimated GFR (Non- 37.1 BUN/Creatinine Ratio 31.6 Random Glucose 102 mg/dl Calcium Level 7.8 mg/dl Magnesium Level 2.6 mg/dl Assessment and Plan 85 yo F with pmhx of HTN, GERD, bladder spasm now with Left distal femur fracture/proximal tib fib fracture Left distal femur fx/proximal tib fib fracture - Patient reports that she is not interested in surgical intervention, and is on board for medical management only. She is currently in a base with is comfortable for her. She is paraplegic therefore has decreased sensation to pain in the affected leg - Ortho on board - plans to keep the brace, will need a holter lift and different wheelchair - Discharge planning: Daughters have many questions about discharge planning- they are very focused on getting her home. Pt reports having 5 hours of coverage in the morning and 3 hours in the afternoon by personal care givers today, where yesterday she told me it was from 8am to 1 pm, without overnight coverage. Her son is supposedly looking into increased personal aid coverage. She lives in assisted living at [facility] in [place]. CM discussed with me: concerned about daughters/pt lying and saying they have more coverage with aides than they really do, in an attempt to get the pt home quickly. CM plans to discuss personal group home rehab after discharge. 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 improved to 1.3, bumped from 1.10 baseline - Holding EZIO, other nephrotoxins Hypertension- - hold amlodipine 5 mg QAM, lisinopril 10 mg QAM, metoprolol succinate 50 mg by mouth every morning, aspirin 81 mg daily, potassium chloride 10 mEq BID, furosemide 20 mg QAM - Change Imdur extended release 30 mg by mouth every morning to Nitropaste 1 inch to the anterior chest wall every 6 hours with hold parameters. -The patient has not needed nitropast. - SBP has been in the 80s-90s - will continue to monitor GERD-- MANAGER [employer] omeprazole 20 mg by mouth daily was changed to pantoprazole 40 mg IV BID (increased to BID for sx). If this doesn't work consider adding ranitidine. - Pt still with complaints of indigestion, will order liquid antacid for temporary relief. Paraplegia - diminished sensation and strength in the lower extremity, decreased motor in the left more so than in the right Bladder spasm- - hold Ditropan 5 mg by mouth twice a day - Chronic indwelling catheter due to paraplegia DVT: ppx Teds, SCDs CODE STATUS: FULL resuscitation Disposition: Patient is from assisted living, caregivers available from 8 AM to 1 PM, family already looking to increase care available to the patient in the assisted living facility, CM to assist with discharge planning Continued [facility] stay due to: ambulation difficulties Discharge planning: uncertain
--- NOTE | 2016-10-01 10:57 | Clinical Documentation Query ---
CLINICAL DOCUMENTATION QUERY 85 year old paraplegic female who presents after fall while being transferred with stand assist chair. In your clinical opinion is this patient being managed for: ( X ) Likely osteoporotic distal femur and proximal tib/fib fractures obtained from ground level fall that would likely not fracture normal healthy bone. ( ) Other explanation of clinical findings (Please Explain) ( ) Unable to determine (Please Define) ( ) Need to Discuss ( ) Not Agree The medical record reflects the following clinical findings, treatment, and risk factors. Clinical Indicators: Fall from ground level where multiple long bone fracture has occurred. Bones were noted as osteoporotic per Radiologist. Treatment: Ortho consult, bracing, Risk Factors: Age, Sex, and nonweightbearing status for many years to lower extremities. (Ruth's Law) Please clarify and document your clinical opinion in the progress notes and discharge summary. Terms such as "probable", "suspected", "likely", "questionable", "possible", or "still to be ruled out" are acceptable. IF IN AGREEMENT, YOU MUST DOCUMENT ABOVE DIAGNOSTIC STATEMENT IN DAILY PROGRESS NOTES AND DISCHARGE SUMMARY. This document is not part of the patient's record. Thank You, Gerard Chavez, RN [phone]
[2016-10-01] MEDS: PANTOprazole INJ 40 MG in SYRINGE 0 ML IV SCH ×2 (11:39→21:30)
[2016-10-01] MEDS: ALUMINUM/MAGNESIUM/SIMETH (MAALOX MAX) 30 ML UDC PO ONE ×2 (11:39→11:47)
[2016-10-01] MEDS ORDERED: CEFTRIAXONE SOD INJ 1000 MG in DEXTROSE 5% 50ML IV SCH (12:00)
[2016-10-01] MEDS: ACETAMINOPHEN IV 100 ML IV PRN (14:52)
[2016-10-01] MEDS ORDERED: MoRPHine SULFATE CR 15 MG TAB (MS CONTIN) PO PRN (15:00)
[2016-10-01] MEDS ORDERED: MoRPHine SULFATE IR 15 MG TAB (IMMEDIATE RELEASE) PO PRN (15:00)
--- NOTE | 2016-10-01 17:44 | Orthopedic Progress Note ---
Orthopedic Progress Note Date of Service Oct 01, 2016. Subjective Additional Notes: Pt resting comfortably. Sleeping off and on during visit. Family present and states they were a little upset that she was possibly being discharged to home today which is now not the case. Family now understands that CM is working on getting equipment for patient at home and also a possbile SNF stay if it will be sometime before they can get the equipment for her. No other complaints. Objective Hinged knee brace applied by Orthotics yesterday and in place presently. Date Time Temp Pulse Resp B/P Pulse Ox O2 Delivery O2 Flow Rate FiO2 10/01/16 16:00 36.6 87 16 114/68 96 10/01/16 12:53 36.5 96 12 105/55 99 Room Air 10/01/16 07:31 Room Air 10/01/16 06:49 36.5 99 20 95/60 92 Room Air 10/01/16 03:40 92 98/58 95 Room Air 10/01/16 00:15 95 Nasal Cannula 2.0 09/30/16 23:45 88 09/30/16 23:39 36.3 99 16 94/56 93 Room Air 09/30/16 20:38 61 97/65 09/30/16 17:51 90/60 Laboratory Results 24 Hours: Test 10/01/16 07:14 White Blood Count 10.05 K/uL Red Blood Count 4.06 M/uL Hemoglobin 10.9 g/dL Hematocrit 34.8 % Mean Corpuscular Volume 85.7 fL Mean Corpuscular Hemoglobin 26.8 pg Mean Corpuscular Hemoglobin Concent 31.3 g/dl Platelet Count 260 K/uL Mean Platelet Volume 9.9 fL Neutrophils (%) (Auto) 74.6 % Lymphocytes (%) (Auto) 13.8 % Monocytes (%) (Auto) 9.3 % Eosinophils (%) (Auto) 1.4 % Basophils (%) (Auto) 0.1 % Neutrophils # (Auto) 7.50 K/uL Lymphocytes # (Auto) 1.39 K/uL Monocytes # (Auto) 0.93 K/uL Eosinophils # (Auto) 0.14 K/uL Basophils # (Auto) 0.01 K/uL Assessment & Plan Assessment: Left Distal Femur/Left Proximal tib/fib fx's being treated non operatively with brace. Plan: Continue brace locked in extension. May be loosened for short periods for bathing etc but must be on regularly. CM working on dc plans Ortho will sign off for now. Please call with any questions.
[2016-10-01] MEDS ORDERED: MoRPHine SULFATE 2 MG/ML CARP IV ONE (20:45)
[2016-10-01] MEDS ORDERED: NURSING VERBAL MED ORDER ONE (20:45)
[2016-10-02] MEDS: ACETAMINOPHEN IV 100 ML IV PRN (01:24)
[2016-10-02] MEDS: NITROGLYCERIN OINT 2% 1GM PACKET EXT SCH ×4 (04:30→23:08)
[2016-10-02] MEDS: SODIUM CHLORIDE 0.9% 1000ML 1,000 ML IV SCH ×2 (04:30→14:11)
[2016-10-02 04:31] VITALS: BP 122/76
--- NOTE | 2016-10-02 05:14 | Clinical Documentation Query ---
CLINICAL DOCUMENTATION QUERY 85 year old paraplegic female who presents after fall while being transferred with stand assist chair. In your clinical opinion is this patient being managed for: ( x ) Likely osteoporotic distal femur and proximal tib/fib fractures obtained from ground level fall that would likely not fracture normal healthy bone. ( ) Other explanation of clinical findings (Please Explain) ( ) Unable to determine (Please Define) ( ) Need to Discuss ( ) Not Agree The medical record reflects the following clinical findings, treatment, and risk factors. Clinical Indicators: Fall from ground level where multiple long bone fracture have occurred. Bones were noted as osteoporotic per Radiologist. Treatment: Ortho consult, bracing, Risk Factors: Age, Sex, and nonweightbearing status for many years to lower extremities. (Ruth's Law) Please clarify and document your clinical opinion in the progress notes and discharge summary. Terms such as "probable", "suspected", "likely", "questionable", "possible", or "still to be ruled out" are acceptable. IF IN AGREEMENT, YOU MUST DOCUMENT ABOVE DIAGNOSTIC STATEMENT IN DAILY PROGRESS NOTES AND DISCHARGE SUMMARY. This document is not part of the patient's record. Thank You, Gerard Chavez, RN [phone]
[2016-10-02 06:06] LABS: BASO % 0.2 %; BASO ABS # 0.02 K/uL (0-0.2); COMPLETE YES; EOS % 2.6 %; HEMATOCRIT 29.2 % (37-47); IG% 0.9 %; LYMPH % 17.9 %; LYMPH ABS # 1.46 K/uL (1.2-3.4); MEAN CELL VOLUME 85.1 fL (80-100); MEAN CORPUSCULAR HEMOGLOBIN 27.4 pg (25-34); MEAN CORPUSCULAR HGB CONC 32.2 g/dl (32-36); MEAN PLATELET VOLUME 9.5 fL (7.4-10.4); MONO % 8.7 %; NEUT % 69.7 %; PLATELET COUNT 238 K/uL (130-400); RED BLOOD COUNT 3.43 M/uL (4.2-5.4); WHITE BLOOD COUNT 8.14 K/uL (4.8-10.8)
[2016-10-02 06:46] LABS: BUN/CREATININE RATIO 29.2 (10-20); CALCIUM 7.8 mg/dl (8.5-10.1); MAGNESIUM 2.4 mg/dl (1.8-2.4)
--- NOTE | 2016-10-02 07:49 | Hospitalist Progress Note ---
Hospitalist Progress Note Date of Service Oct 02, 2016. Subjective Pt evaluation today including: conversation w/ patient, conversation w/ family , physical exam, chart review, lab review, review of studies, review of inpatient medication list Pain: Chronic R sided rib pain, minimal PO Intake: Good Voiding: garcia catheter in place The patient was seen and examined this morning. Pt reports she is doing well except for a right sided chest pain which is chronic. She notes this pain comes and goes since prior to paraplegia 10 years ago. She reports still having a little indigestion, and reports maalox yesterday helped. Her children , son (tracey) and two daughters are present here today. They have a planned meeting with CM to determine placement after discharge. She denies any chest pain, shortness of breath, abdominal pain, nausea, vomiting, diarrhea or constipation. She denies any pain in her left leg. Additional Comments: ROS: Constitutional: No fever, chills, sweats, fatigue or weakness Eyes: No diplopia, no changes in vision ENT: No sore throat, tinnitus, or trouble swallowing Respiratory: No shortness of breath, No dyspnea at rest or on exertion, no cough or sputum Cardiovascular: No chest pain, palpitations, or flutter Abdomen: No pain, + indigestion, No constipation, No diarrhea, No nausea, No vomiting Musculoskeletal: No calf pain, No joint pain, + bilateral pedal swelling Genitourinary : No dysuria or urinary frequency, No hematuria Neurologic: + paraplegia, + sensory deficit bilaterally, ambulates via wheelchair Psychiatric: No depression or anxiety symptoms Endocrine: No fatigue, No weight changes Integumentary: No itch, No rash Objective Vital Signs Date Time Temp Pulse Resp B/P Pulse Ox O2 Delivery O2 Flow Rate FiO2 10/02/16 04:31 122/76 10/01/16 23:42 36.3 83 16 95 Room Air 10/01/16 21:27 120/72 10/01/16 20:05 Room Air 10/01/16 16:00 36.6 87 16 114/68 96 10/01/16 12:53 36.5 96 12 105/55 99 Room Air Physical Exam Notes: Physical Exam General Appearance: WD/WN, no apparent distress, + obese Eyes: PERRL, EOMI ENT: pharynx normal, + pertinent finding (hard of hearing, aides in place) Neck: supple, no JVD Respiratory/Chest: lungs clear, no respiratory distress, no accessory muscle use Cardiovascular: + Irregularly irregular, + systolic murmur Abdomen: normal bowel sounds, non tender, soft Extremities: no calf tenderness, + pedal edema (bilaterally up to knees, 1+ pitting. Left leg in brace. Bilateral legs elevated, heel pads in place, air waffle boots on. ) Neurologic/Psychiatric: alert, normal mood/affect, oriented x 3 Skin: normal color, warm/dry Laboratory Results Last 24 Hours Test 10/02/16 05:53 White Blood Count 8.14 K/uL Red Blood Count 3.43 M/uL Hemoglobin 9.4 g/dL Hematocrit 29.2 % Mean Corpuscular Volume 85.1 fL Mean Corpuscular Hemoglobin 27.4 pg Mean Corpuscular Hemoglobin Concent 32.2 g/dl Platelet Count 238 K/uL Mean Platelet Volume 9.5 fL Neutrophils (%) (Auto) 69.7 % Lymphocytes (%) (Auto) 17.9 % Monocytes (%) (Auto) 8.7 % Eosinophils (%) (Auto) 2.6 % Basophils (%) (Auto) 0.2 % Neutrophils # (Auto) 5.67 K/uL Lymphocytes # (Auto) 1.46 K/uL Monocytes # (Auto) 0.71 K/uL Eosinophils # (Auto) 0.21 K/uL Basophils # (Auto) 0.02 K/uL RDW Standard Deviation 54.1 fL RDW Coefficient of Variation 17.3 % Immature Granulocyte % (Auto) 0.9 % Immature Granulocyte # (Auto) 0.07 K/uL Sodium Level 144 mmol/L Potassium Level 4.0 mmol/L Chloride Level 115 mmol/L Carbon Dioxide Level 22 mmol/L Anion Gap 7.0 mmol/L Blood Urea Nitrogen 29 mg/dl Creatinine 1.00 mg/dl Est Creatinine Clear Calc Drug Dose 40.4 ml/min Estimated GFR () 59.1 Estimated GFR (Non- 51.0 BUN/Creatinine Ratio 29.2 Random Glucose 87 mg/dl Calcium Level 7.8 mg/dl Magnesium Level 2.4 mg/dl Assessment and Plan 85 yo F with pmhx of HTN, GERD, bladder spasm now with Left distal femur fracture/proximal tib fib fracture Left distal femur fx/proximal tib fib osteoporotic fx - Fracture from osteoporosis, non-weight bearing pt due to paraplegia - not interested in surgical intervention, wants medical management only. - Ortho signed off: plans to keep the brace, will need a holter lift and different wheelchair- CM looking into SNF placement - Discharge planning: CM met with the patient and family members, plan for discharge to [facility] on Wednesday. 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 = 1.00 today, has 1.10 baseline - resolved - Holding EZIO, other nephrotoxins Atrial Fibrillation - Pt has a past history of afib, will ask the patient about anticoagulation and if she's been on this in the past. She is rate controlled. - Restart HEL[employer]OPTER [employer] metoprolol succinate 50 mg QAM. Hypertension with episode of Hypotension on admission - hold amlodipine 5 mg QAM, lisinopril 10 mg QAM, aspirin 81 mg daily, potassium chloride 10 mEq BID, furosemide 20 mg QAM - Change Imdur extended release 30 mg by mouth every morning to Nitropaste 1 inch to the anterior chest wall every 6 hours with hold parameters. Nitropaste on today. - SBP is improving, now in the 110s-120s. Likely that hypotension was secondary to dehydration with pt/fam report of poor oral intake for 3 days. E.coli UTI could have caused initial hypotension. E.Coli UTI - Got Rocephin x 1 day, will transition to keflex 500 mg QID today (day 2 of antibiotics) GERD ? Hiatal hernia, can heard bowel sounds at level of the sternum. - HELICOPTER MECH[employer]IC omeprazole 20 mg by mouth daily was changed to pantoprazole 40 mg IV BID (increased to BID for sx). - Will add ranitidine today. - Maalox Q6H prn for indigestion temporary relief. Paraplegia - diminished sensation and strength in the lower extremity, decreased motor in the left more so than in the right Bladder spasm- - hold Ditropan 5 mg by mouth twice a day - Chronic indwelling catheter due to paraplegia DVT: ppx Teds, SCDs CODE STATUS: FULL resuscitation Disposition: Patient is from assisted living, CM to assist with discharge planning
[2016-10-02] MEDS: BOOST VANILLA PO SCH ×6 (07:50→20:49)
[2016-10-02] MEDS: PANTOprazole INJ 40 MG in SYRINGE 0 ML IV SCH ×2 (07:51→20:50)
[2016-10-02 08:09] VITALS: BP 119/78; PULSE 84; TEMP 36.3; O2SAT 99
[2016-10-02] MEDS: CEPHALEXIN MONOHYDRATE 500 MG CAP PO SCH ×3 (08:52→20:50)
[2016-10-02] MEDS ORDERED: CEFTRIAXONE SOD INJ 1,000 MG in DEXTROSE 5% 50ML 50 ML IV SCH (09:00)
[2016-10-02] MEDS ORDERED: ALUMINUM/MAGNESIUM/SIMETH (MAALOX MAX) 30 ML UDC PO PRN (09:15)
[2016-10-02 15:27] VITALS: BP 135/84; PULSE 91; TEMP 36.6; O2SAT 96
[2016-10-02] MEDS: RANITIDINE HCL 150 MG TAB PO SCH (20:49)
[2016-10-03] VITALS (8 sets, daily range): BP systolic 134–178; BP diastolic 79–103; PULSE 81–105; TEMP 35.8–36.8; O2SAT 96–97
[2016-10-03] MEDS: ACETAMINOPHEN 325 MG TAB PO PRN (00:25)
[2016-10-03] MEDS: NITROGLYCERIN OINT 2% 1GM PACKET EXT SCH ×2 (04:32→09:32)
[2016-10-03] MEDS: BOOST VANILLA PO SCH ×6 (07:38→21:00)
[2016-10-03] MEDS: PANTOprazole INJ 40 MG in SYRINGE 0 ML IV SCH (07:38)
[2016-10-03] MEDS: CEPHALEXIN MONOHYDRATE 500 MG CAP PO SCH ×2 (07:38→21:29)
[2016-10-03] MEDS: METOPROLOL SUCC 50MG EXT REL TAB PO SCH (07:38)
[2016-10-03] MEDS ORDERED: AMLODIPINE BESYLATE 5 MG TAB PO ONE (09:12)
[2016-10-03] MEDS ORDERED: LISINOPRIL 10 MG TAB PO ONE (09:12)
[2016-10-03] MEDS ORDERED: FUROSEMIDE 20 MG TAB PO ONE (09:12)
--- NOTE | 2016-10-03 12:01 | DIAGNOSTIC IMAGING REPORT ---
KUB CLINICAL HISTORY: Nausea and vomiting. FINDINGS: 2 AP, portable, supine abdominal radiograph are obtained. No prior studies are available for comparison at the time of dictation. There is a nonobstructed abdominal bowel gas pattern. Moderate to severe colonic fecal retention is observed. No evidence of intraperitoneal free air is seen on these supine images. An IVC filter is in place. No abnormal abdominal calcifications are identified. The skeletal structures are osteopenic and there is lumbosacral spondylosis. IMPRESSION: Nonobstructed abdominal bowel gas pattern noting moderate to severe constipation. Electronically signed by: Pb Perla M.D. 10/03/2016 12:00 PM Dictated Date/Time: 10/03/2016 11:58 AM
--- NOTE | 2016-10-03 12:05 | DIAGNOSTIC IMAGING REPORT ---
SINGLE VIEW CHEST CLINICAL HISTORY: Cough and vomiting. FINDINGS: An AP, portable, upright chest radiograph is compared to study dated 09/29/2016. The examination is degraded by portable technique and patient rotation. The heart is enlarged and there is atherosclerotic calcification of the thoracic aorta. The pulmonary vasculature is noncongested. Chronic interstitial thickening is unchanged. No airspace consolidation, large pleural effusion, or pneumothorax is seen. The skeletal structures are osteopenic. Degenerative change is noted throughout the spine. An IVC filter is partially imaged in the upper abdomen. IMPRESSION: Cardiomegaly with no acute cardiopulmonary abnormality. Electronically signed by: Pb Perla M.D. 10/03/2016 12:04 PM Dictated Date/Time: 10/03/2016 12:03 PM
--- NOTE | 2016-10-03 12:09 | Gastrointestinal Consultation ---
Gastrointestinal Consultation Date of Consultation: Oct 03, 2016 History of Present Illness Patient is a 85 year old female admitted to the hospital for a left tibia fracture that is being treated non-operatively. Dr. Stiles was asked to see patient for regurge,poor po intake, and difficulty with swallowing. I am covering this weekend. She is a 85 yo who has paraplegia for at least the last 10 years. Adm after fall and resultant orthopedic injury that has been evaluated and decided upon to treat conservatively. The family asked primary to discuss poor po intake, regurge, and coughing while and after eating. The family was not present during my interview, however, and patient and nurse provided history. She states that intermittently after eating she has "spitting up fits". It does not occur all the time, but does intermittently. She denies coughing during eating, however, nurse states that she has been witnessed coughing after eating and then resultantly having what appears to be post tussive emesis. She has no nausea, no abdominal pain, and no odynophagia. She is on PPI BID and no heartburn while on that regimen. She states that she has only had this problem while admitted. No hx of EGD. Past Medical/Surgical History Medical Problems: (1) Atrial fibrillation Status: Chronic (2) Dehydration Status: Acute Social History Smoking Status: Never Smoker Drug Use: none Marital Status: single Occupation Status: retired Allergies Coded Allergies: Oxycodone (Verified Allergy, Severe, "LOOPEY"-CONFUSED, 09/29/16) Current Medications Home Meds and Scripts Medications Dose Route/Sig Max Daily Dose Days Date Category Calcium 600 Mg Tab 600 Mg PO DAILY 09/29/16 Reported Cranberry (Cranberry (Vaccinium Macrocarp) 500 Mg Cap 500 Mg PO DAILY 09/29/16 Reported Aspirin Ec (Aspirin) 81 Mg Tab 81 Mg PO DAILY 09/29/16 Reported Kp Ferrous Sulfate (Ferrous Sulfate) 325 Mg Tab 1 Tab PO TID 30 09/29/16 Reported Vitamin C (Ascorbic Acid) 500 Mg Tab 500 Mg PO DAILY 09/29/16 Reported Prilosec (Omeprazole) 20 Mg Capcr 20 Mg PO DAILY 09/29/16 Reported Multivitamin Adults (Multiple Vitamins W/ Minerals) 1 Tab Tab 1 Tab PO DAILY 09/29/16 Reported Fiber Therapy (Methylcellulose (Laxative)) 500 Mg Tab 500 Mg PO DAILY 09/29/16 Reported Docusate Sodium 100 Mg Cap 250 Mg PO DAILY 7 09/29/16 Reported Ditropan (Oxybutynin Chloride) 5 Mg Tab 5 Mg PO BID 09/29/16 Reported Morphine Sulfate Ir (Morphine Sulfate) 15 Mg Tab 15 Mg PO QAM PRN 09/29/16 Reported Norvasc (Amlodipine Besylate) 5 Mg Tab 5 Mg PO QAM 09/29/16 Reported Ms Contin (Morphine Sulfate) 15 Mg Tabcr 15 Mg PO Q12 PRN 09/29/16 Reported Lasix (Furosemide) 20 Mg Tab 20 Mg PO QAM 09/29/16 Reported Micro-K Ext Rel (Potassium Chloride) 10 Meq Capcr 10 Meq PO BID 09/29/16 Reported Imdur Ext Rel (Isosorbide Mononitrate) 30 Mg Ertab 30 Mg PO QAM 01/25/06 Reported Zestril (Lisinopril) 10 Mg Tab 10 Mg PO QAM 01/25/06 Reported Toprol-Xl (Metoprolol Succinate) 50 Mg Tabcr 50 Mg PO QAM 01/25/06 Reported Review of Systems Constitutional: No chills, No fatigue, No fever, No problem reported, No see HPI, No sweats, No weakness, No weight loss Eyes: No diplopia, No discharge, No eye pain, No problem reported, No redness, No see HPI, No worsening of vision ENT: No dental problems, No hearing loss, No nasal symptoms, No pain on swallowing, No problem reported, No see HPI, No sore throat, No tinnitus, No trouble swallowing, No unusual epistaxis Respiratory: No cough, No dyspnea at rest, No dyspnea on exertion, No hemoptysis, No problem reported, No see HPI, No shortness of breath, No sputum, No wheezing Abdomen: + see HPI Musculoskeletal: + see HPI Neuro: + see HPI Physical Exam Date Time Temp Pulse Resp B/P Pulse Ox O2 Delivery O2 Flow Rate FiO2 10/03/16 10:30 156/80 10/03/16 07:48 Room Air 10/03/16 07:25 36.5 95 18 176/79 97 Room Air 178/103 10/03/16 04:29 163/86 10/03/16 01:00 87 134/84 10/03/16 00:15 Room Air 3/25/17 00:10 36.8 100 15 160/98 96 Room Air 10/02/16 16:05 Room Air 10/02/16 15:27 36.6 91 16 135/84 96 Room Air General Appearance: + pertinent finding (debhillitated ) Respiratory/Chest: chest non-tender, lungs clear Cardiovascular: regular rate, rhythm Abdomen: normal bowel sounds, non tender, soft Neurologic/Psych: sider II-XII nml as tested Impression Patient is a 85 year old female with possible post tussive emesis vs orpharyngeal dysfunction vs regurgitation. Plan The history is conflicting, I tend to believe the witnessed nursing accounts. Will require speech therapy eval, possible MBBS per speech and then further gi recs afterwards. In the interim, would suggest aspiration precautions CXR KUB to ensure no new infiltrate and or gastric distention. Dr. Stiles will return on Wednesday to decide upon if EGD is necessary or warranted.
--- NOTE | 2016-10-03 12:35 | Progress Note ---
Subjective Date of Service: Oct 03, 2016. Subjective Pt evaluation today including: conversation w/ patient, conversation w/ family , physical exam, lab review, review of studies, conversation w/ senior sales consultant, review of inpatient medication list Pain: pain controlled PO Intake: difficulty swallowing, spitting up meals Voiding: garcia catheter in place patient's family concerned about patient's poor oral intake has been an issue for a few weeks, likely lead to her dehydration, weakness and subsequent fall family describes that she cannot keep food down, spits up frequently, liquids and solids per RN, she ate her oatmeal this AM Problem List Medical Problems: (1) Atrial fibrillation Status: Chronic (2) Dehydration Status: Acute Review of Systems Constitutional: + fatigue, + weakness Abdomen: + vomiting (spitting up, difficulty swallowing) Musculoskeletal: + joint pain (back, right leg) All Other Systems: Reviewed and Negative Medications Current Inpatient Medications Medications (Trade) Dose Ordered Sig/Adam Route Start Time Stop Time Status Last Admin Dose Admin Nitroglycerin (Nitroglycerin 2% Oint) 1 inch Q6H EXT 09/30/16 04:00 10/30/16 03:59 10/03/16 09:32 1 INCH Acetaminophen (Tylenol Tab) 650 mg Q4H PRN PO 09/30/16 00:00 10/30/16 00:00 10/03/16 00:25 650 MG Ondansetron HCl (Zofran Inj) 4 mg Q6H PRN IV 09/30/16 00:00 10/30/16 00:00 09/30/16 13:53 4 MG Enteral Nutritional Formula 1 can 1 can TID PO 09/30/16 14:00 10/30/16 13:59 10/03/16 07:38 1 CAN Pantoprazole Sodium/Syringe (Protonix Inj/ Syringe) 10 ml @ 5 mls/min BID IV 10/01/16 21:00 10/31/16 20:59 10/03/16 07:38 5 MLS/MIN Morphine Sulfate (Oramorph Sr Tab) 15 mg Q12 PRN PO 10/01/16 15:00 10/15/16 14:59 10/01/16 15:38 15 MG Morphine Sulfate (MoRPHine SULFATE IR TAB) 15 mg QAM PRN PO 10/01/16 15:00 10/15/16 14:59 Ranitidine HCl (zANTac TAB) 150 mg QPM PO 10/02/16 21:00 11/01/16 20:59 10/02/16 20:49 150 MG Al Hydrox/Mg Hydrox/Simethicone (Maalox Max Susp) 15 ml Q6H PRN PO 10/02/16 09:15 11/01/16 09:14 10/02/16 13:18 15 ML Metoprolol Succinate (Toprol Xl Tab) 50 mg QAM PO 10/03/16 09:00 11/02/16 08:59 10/03/16 07:38 50 MG Cephalexin Monohydrate (Keflex Cap) 500 mg BID PO 10/02/16 21:00 10/05/16 23:59 10/03/16 07:38 500 MG Amlodipine Besylate (Norvasc Tab) 5 mg QAM PO 10/04/16 09:00 11/03/16 08:59 Furosemide (Lasix Tab) 20 mg QAM PO 10/04/16 09:00 11/03/16 08:59 Lisinopril (Zestril Tab) 10 mg QAM PO 10/04/16 09:00 11/03/16 08:59 Objective Vital Signs Date Time Temp Pulse Resp B/P Pulse Ox O2 Delivery O2 Flow Rate FiO2 10/03/16 10:30 156/80 10/03/16 07:48 Room Air 10/03/16 07:25 36.5 95 18 176/79 97 Room Air 178/103 10/03/16 04:29 163/86 10/03/16 01:00 87 134/84 10/03/16 00:15 Room Air 10/03/16 00:10 36.8 100 15 160/98 96 Room Air 10/02/16 16:05 Room Air 10/02/16 15:27 36.6 91 16 135/84 96 Room Air Physical Exam General Appearance: no apparent distress, + thin Neck: supple, no adenopathy, no JVD, trachea midline Respiratory/Chest: chest non-tender, lungs clear, normal breath sounds, no respiratory distress, no accessory muscle use Cardiovascular: regular rate, rhythm, no edema, no gallop, no JVD, no murmur Abdomen: normal bowel sounds, non tender, soft, no organomegaly Extremities: non-tender, no pedal edema, no calf tenderness, normal capillary refill, pelvis stable, + pertinent finding (paraplegic below waist, right leg in brace) Neurologic/Psychiatric: service center technician II-XII nml as tested, alert, normal mood/affect, oriented x 3, + motor weakness (paralysis below waist) Skin: normal color, warm/dry, no rash Assessment and Plan 85 yo female with paraplegia for 10 years, presented after being dropped at assisted living facility, suffered right distal femur and proximal tib/fib fracture, for several weeks prior to admission she had poor oral intake, spitting up or vomiting most meals, difficulty swallowing, had BRET on admission. Orthopedics recommended non-operative management with brace. - Distal femur, proximal tib/fib fracture: non-operative management, continue brace in extension limited pain, she has h/o paraplegia, using just Tylenol for now added back her chronic Morphine yesterday difficult situation caring for her at home, will go to [facility] when medically stable - Hypotension: resolved, BP markedly high today, hypotension was due to dehydration, resolved with aggressive IV fluids - Hypertension: into the 170's systolic today, add back Metoprolol, Lisinopril, Norvasc and Imdur - BRET: baseline Cr 1.1, improved to 1.0 from 2.0, likely prerenal with poor oral intake and she was likely taking her Lisinopril which would compound issue - atrial fibrillation: rates in 90-100's, metoprolol resumed yesterday, not on anticoagulation chronically - E coli UTI associated with chronic garcia: Keflex 500mg BID, complete 10 days total due to garcia catheter, afebrile - Dysphagia: unclear etiology, family very concerned due to dehydration and potential malnourishment if she cannot eat Protonix PO BID, Ranitidine 150 daily consult GI for recommendations, EGD would not happen until Wednesday IF that would be recommended family aware of this Plan: continue current therapies, GI consult, keep over weekend, hold on going to [facility] on Wednesday depending on what GI wants to do for dysphagia work up Continued [facility] stay due to: ambulation difficulties Discharge planning: uncertain
[2016-10-03] MEDS: SODIUM CHLORIDE 0.9% 1000ML 1,000 ML IV SCH (12:43)
[2016-10-03] MEDS ORDERED: POLYETHYLENE (MIRALAX) 17 GM PACK PO ONE (15:30)
[2016-10-03] MEDS: BISACODYL 10 MG SUPP PR PRN (16:11)
[2016-10-03] MEDS ORDERED: NURSING DECISION MEDICATION ORDER SCH ×2 (20:15→21:00)
[2016-10-03] MEDS ORDERED: MICONAZOLE NITRATE POWDER 43 GM EXT PRN (21:15)
[2016-10-03] MEDS: RANITIDINE HCL 150 MG TAB PO SCH (21:27)
[2016-10-03] MEDS: PANTOprazole SOD 40 MG TAB PO SCH (21:28)
[2016-10-04 01:37] VITALS: TEMP 36.9
[2016-10-04 07:29] VITALS: BP 153/86; PULSE 86; TEMP 36.6; O2SAT 97
[2016-10-04] MEDS: SODIUM CHLORIDE 0.9% 1000ML 1,000 ML IV SCH (09:10)
[2016-10-04] MEDS: ISOSORBIDE MONONITRATE 30 MG TABCR PO SCH (09:11)
[2016-10-04] MEDS: CEPHALEXIN MONOHYDRATE 500 MG CAP PO SCH ×2 (09:12→21:29)
[2016-10-04] MEDS: FUROSEMIDE 20 MG TAB PO SCH (09:13)
[2016-10-04] MEDS: AMLODIPINE BESYLATE 5 MG TAB PO SCH (09:14)
[2016-10-04] MEDS: METOPROLOL SUCC 50MG EXT REL TAB PO SCH (09:14)
[2016-10-04] MEDS: PANTOprazole SOD 40 MG TAB PO SCH ×2 (09:14→21:29)
[2016-10-04] MEDS: LISINOPRIL 10 MG TAB PO SCH (09:15)
[2016-10-04] MEDS: BOOST VANILLA PO SCH ×6 (09:25→20:18)
[2016-10-04] MEDS: POLYETHYLENE (MIRALAX) 17 GM PACK PO SCH (10:18)
--- NOTE | 2016-10-04 14:02 | Progress Note ---
Subjective Date of Service: Oct 04, 2016. Subjective Pt evaluation today including: conversation w/ patient, conversation w/ family , physical exam, conversation w/ acura sales consultant, review of inpatient medication list Pain: denies pain today PO Intake: poor, suboptimal Voiding: garcia catheter in place patient feeling well overall today, no issues overnight continues to cough every 15 minutes actually able to witness an episode, just coughing up sputum does not appear to be regurgitating she does admit that her intake is poor, denies dysphagia and odynophagia she would refuse an EGD if recommended, could be open to barium swallow discussed in detail that her family concerned that her poor intake made her dehydrated with her renal failure if there is a treatable cause then we might be able to prevent dehydration she is willing to see GI tomorrow Problem List Medical Problems: (1) Atrial fibrillation Status: Chronic (2) Dehydration Status: Acute Review of Systems Constitutional: + fatigue, + weakness Respiratory: + cough, + sputum Abdomen: + problem reported (poor oral intake) Neurologic: + paralysis (below the waiste) All Other Systems: Reviewed and Negative Medications Current Inpatient Medications Medications (Trade) Dose Ordered Sig/Adam Route Start Time Stop Time Status Last Admin Dose Admin Acetaminophen (Tylenol Tab) 650 mg Q4H PRN PO 09/30/16 00:00 10/30/16 00:00 10/03/16 00:25 650 MG Ondansetron HCl (Zofran Inj) 4 mg Q6H PRN IV 09/30/16 00:00 10/30/16 00:00 09/30/16 13:53 4 MG Enteral Nutritional Formula (Boost) 1 can TID PO 09/30/16 14:00 10/30/16 13:59 10/04/16 09:25 1 CAN Morphine Sulfate (Oramorph Sr Tab) 15 mg Q12 PRN PO 10/01/16 15:00 10/15/16 14:59 10/01/16 15:38 15 MG Morphine Sulfate (MoRPHine SULFATE IR TAB) 15 mg QAM PRN PO 10/01/16 15:00 10/15/16 14:59 Ranitidine HCl (zANTac TAB) 150 mg QPM PO 10/02/16 21:00 11/01/16 20:59 10/03/16 21:27 150 MG Al Hydrox/Mg Hydrox/Simethicone (Maalox Max Susp) 15 ml Q6H PRN PO 10/02/16 09:15 11/01/16 09:14 10/02/16 13:18 15 ML Metoprolol Succinate (Toprol Xl Tab) 50 mg QAM PO 10/03/16 09:00 11/02/16 08:59 10/04/16 09:14 50 MG Cephalexin Monohydrate (Keflex Cap) 500 mg BID PO 10/02/16 21:00 10/05/16 23:59 10/04/16 09:12 500 MG Amlodipine Besylate (Norvasc Tab) 5 mg QAM PO 10/04/16 09:00 11/03/16 08:59 10/04/16 09:14 5 MG Furosemide (Lasix Tab) 20 mg QAM PO 10/04/16 09:00 11/03/16 08:59 10/04/16 09:13 20 MG Lisinopril 10 mg 10 mg QAM PO 10/04/16 09:00 11/03/16 08:59 10/04/16 09:15 10 MG Sodium Chloride (Nss 1000ml) 1,000 ml @ 50 mls/hr Q20H IV 10/03/16 12:30 11/02/16 12:29 10/04/16 09:10 50 MLS/HR Pantoprazole Sodium (Protonix Tab) 40 mg BID PO 10/03/16 21:00 11/02/16 20:59 10/04/16 09:14 40 MG Isosorbide Mononitrate (Imdur Ext Rel Tab) 30 mg QAM PO 10/04/16 09:00 11/03/16 08:59 10/04/16 09:11 30 MG Polyethylene (Miralax Powder Packet) 17 gm DAILY PO 10/04/16 09:00 11/03/16 08:59 10/04/16 10:18 17 GM Bisacodyl (Dulcolax Supp) 10 mg DAILY PRN [place] 10/03/16 15:00 11/02/16 14:59 10/03/16 16:11 10 MG Miconazole Nitrate (Desenex Powder) 1 appln BID PRN EXT 10/03/16 21:15 11/02/16 21:14 10/03/16 21:50 1 APPLN Objective Vital Signs Date Time Temp Pulse Resp B/P Pulse Ox O2 Delivery O2 Flow Rate FiO2 10/04/16 10:25 Room Air 10/04/16 07:29 36.6 86 17 153/86 97 Room Air 10/04/16 01:37 36.9 10/04/16 00:20 Room Air 10/03/16 22:46 35.8 94 20 145/87 97 Room Air 10/03/16 21:50 81 154/80 10/03/16 16:20 Room Air 10/03/16 15:03 36.4 105 17 153/92 97 Room Air Physical Exam General Appearance: no apparent distress, + thin Eyes: normal inspection, EOMI, sclerae normal ENT: normal ENT inspection, hearing grossly normal, pharynx normal Neck: supple, no adenopathy, no JVD, trachea midline Respiratory/Chest: chest non-tender, lungs clear, normal breath sounds, no respiratory distress, no accessory muscle use Cardiovascular: regular rate, rhythm, no edema, no gallop, no JVD, no murmur Abdomen: normal bowel sounds, non tender, soft, no organomegaly Extremities: no pedal edema, no calf tenderness, normal capillary refill, pelvis stable Neurologic/Psychiatric: it sales representative II-XII nml as tested, alert, normal mood/affect, oriented x 3, + motor weakness (lower extremity paralysis) Skin: normal color, warm/dry, no rash Assessment and Plan 85 yo female with paraplegia for 10 years, presented after being dropped at assisted living facility, suffered right distal femur and proximal tib/fib fracture, for several weeks prior to admission she had poor oral intake, spitting up or vomiting most meals, difficulty swallowing, had BRET on admission. Orthopedics recommended non-operative management with brace. - Distal femur, proximal tib/fib fracture: non-operative management, continue brace in extension limited pain, she has h/o paraplegia, using just Tylenol for now added back her chronic Morphine difficult situation caring for her at home, initial plan was for [facility] , now family does not like that plan no discharge today, probably not tomorrow, recommend a SNF for higher level of care unless she can have 24 care at home going forward - Hypotension: resolved after 36 hours hypotension was due to dehydration, resolved with aggressive IV fluids - Hypertension: into the 170's systolic yesterday, added back Metoprolol, Lisinopril, Norvasc and Imdur and BP much better today - BRET: baseline Cr 1.1, improved to 1.0 from 2.0, likely prerenal with poor oral intake and she was likely taking her Lisinopril which would compound issue - atrial fibrillation: rates in 90-100's, metoprolol resumed yesterday, not on anticoagulation chronically - E coli UTI associated with chronic garcia: Keflex 500mg BID, complete 10 days total due to garcia catheter, afebrile - Dysphagia: unclear etiology, family very concerned due to dehydration and potential malnourishment if she cannot eat Protonix PO BID, Ranitidine 150 daily consult GI for recommendations, EGD would not happen until Wednesday IF that would be recommended but patient not sure she would even want EGD family aware of this - Constipation: Miralax, suppository PRN Plan: continue current therapies, GI consult, keep over weekend, hold on going to [facility] on Wednesday depending on what GI wants to do for dysphagia work up and now family and patient not agreeable to [facility] CM made aware Continued [facility] stay due to: ambulation difficulties Discharge planning: uncertain
[2016-10-04 15:39] VITALS: BP 152/96; PULSE 93; TEMP 36.6; O2SAT 97
[2016-10-04] MEDS: BISACODYL 10 MG SUPP PR PRN (15:48)
[2016-10-04] MEDS: RANITIDINE HCL 150 MG TAB PO SCH (21:29)
[2016-10-04 21:39] VITALS: BP 149/83
[2016-10-04 23:00] VITALS: BP 100/72; PULSE 89; TEMP 36.6; O2SAT 97
[2016-10-05] MEDS: SODIUM CHLORIDE 0.9% 1000ML 1,000 ML IV SCH (04:21)
[2016-10-05 06:08] LABS: BASO % 0.2 %; BASO ABS # 0.02 K/uL (0-0.2); COMPLETE YES; EOS % 0.5 %; HEMATOCRIT 32.6 % (37-47); IG% 2.8 %; LYMPH % 18.3 %; LYMPH ABS # 1.59 K/uL (1.2-3.4); MEAN CELL VOLUME 85.6 fL (80-100); MEAN CORPUSCULAR HEMOGLOBIN 27.3 pg (25-34); MEAN CORPUSCULAR HGB CONC 31.9 g/dl (32-36); MEAN PLATELET VOLUME 9.4 fL (7.4-10.4); MONO % 8.4 %; NEUT % 69.8 %; PLATELET COUNT 309 K/uL (130-400); RED BLOOD COUNT 3.81 M/uL (4.2-5.4); WHITE BLOOD COUNT 8.68 K/uL (4.8-10.8)
[2016-10-05 06:46] LABS: BUN/CREATININE RATIO 14.4 (10-20); CREATININE 0.81 mg/dl (0.60-1.20); MAGNESIUM 2.3 mg/dl (1.8-2.4); POTASSIUM 3.4 mmol/L (3.5-5.1)
[2016-10-05 07:31] VITALS: BP 147/91; PULSE 98; TEMP 36.7; O2SAT 97
[2016-10-05 07:33] VITALS: O2SAT 97
[2016-10-05] MEDS ORDERED: POTASSIUM CHLORIDE 10 MEQ TABCR PO ONE (08:00)
[2016-10-05] MEDS: BOOST VANILLA PO SCH ×6 (09:00→20:37)
[2016-10-05] MEDS: POLYETHYLENE (MIRALAX) 17 GM PACK PO SCH (09:00)
[2016-10-05 09:03] VITALS: BP 158/88; PULSE 108
[2016-10-05] MEDS: CEPHALEXIN MONOHYDRATE 500 MG CAP PO SCH ×2 (09:05→20:37)
[2016-10-05] MEDS: ISOSORBIDE MONONITRATE 30 MG TABCR PO SCH (09:07)
[2016-10-05] MEDS: FUROSEMIDE 20 MG TAB PO SCH (09:08)
[2016-10-05] MEDS: AMLODIPINE BESYLATE 5 MG TAB PO SCH (09:11)
[2016-10-05] MEDS: PANTOprazole SOD 40 MG TAB PO SCH ×2 (09:12→20:38)
[2016-10-05] MEDS: METOPROLOL SUCC 50MG EXT REL TAB PO SCH (09:12)
[2016-10-05] MEDS: LISINOPRIL 10 MG TAB PO SCH (09:13)
[2016-10-05] MEDS ORDERED: D5W AND NSS 1,000 ML IV SCH (09:15)
[2016-10-05] MEDS ORDERED: NURSING VERBAL MED ORDER ONE ×2 (09:15→09:30)
--- NOTE | 2016-10-05 09:20 | Progress Note ---
Subjective Date of Service: Oct 05, 2016. Subjective Pt evaluation today including: conversation w/ patient, conversation w/ family , physical exam, chart review, lab review, review of studies, review of inpatient medication list Voiding: garcia catheter in place Decrease hearing, but conversational, cough up some foot in emesis, no other uncomfortable, Garcia catheter in place is not new she's paraplastic and bedridden for years, Problem List Medical Problems: (1) Atrial fibrillation Status: Chronic (2) Dehydration Status: Acute Review of Systems Constitutional: + fatigue, No chills, No fever ENT: + hearing loss Respiratory: + cough Cardiac: No PND, No chest pain, No claudication, No edema, No orthopnea, No palpitations, No problem reported, No see HPI Abdomen: + problem reported (emesis), No GI bleeding, No constipation, No diarrhea, No nausea, No pain, No see HPI, No vomiting Musculoskeletal: + joint pain Female : + problem reported (Garcia in place) Neurologic: + see HPI, + weakness Skin: No bleeding, No color change, No itch, No new/changing skin lesions, No rash Objective Vital Signs Date Time Temp Pulse Resp B/P Pulse Ox O2 Delivery O2 Flow Rate FiO2 10/05/16 09:03 108 158/88 10/05/16 07:33 97 Room Air 10/05/16 07:31 36.7 98 16 147/91 97 Room Air 10/04/16 23:15 Room Air 10/04/16 23:00 36.6 89 16 100/72 97 Room Air 10/04/16 21:39 149/83 10/04/16 15:50 Room Air 10/04/16 15:39 36.6 93 17 152/96 97 Room Air 10/04/16 10:25 Room Air Physical Exam General Appearance: WD/WN, no apparent distress, + thin, + pertinent finding ( frail) Eyes: normal inspection, PERRL, EOMI, sclerae normal ENT: normal ENT inspection, hearing grossly normal, pharynx normal Neck: supple, no adenopathy, thyroid normal, no JVD, no carotid bruits, trachea midline Respiratory/Chest: chest non-tender, normal breath sounds, no respiratory distress, no accessory muscle use, + decreased breath sounds Cardiovascular: regular rate, rhythm, no edema, no gallop, no JVD, no murmur Abdomen: normal bowel sounds, non tender, soft, no organomegaly, no pulsatile mass Extremities: normal range of motion, non-tender, normal inspection, no pedal edema, no calf tenderness, normal capillary refill, pelvis stable Neurologic/Psychiatric: manager books II-XII nml as tested, alert, normal mood/affect, oriented x 3, + motor weakness (paraplastic in lower extremities ) Skin: normal color, warm/dry, no rash Lymphatic: no adenopathy Laboratory Results Last 24 Hours Test 10/05/16 05:50 White Blood Count 8.68 K/uL Red Blood Count 3.81 M/uL Hemoglobin 10.4 g/dL Hematocrit 32.6 % Mean Corpuscular Volume 85.6 fL Mean Corpuscular Hemoglobin 27.3 pg Mean Corpuscular Hemoglobin Concent 31.9 g/dl Platelet Count 309 K/uL Mean Platelet Volume 9.4 fL Neutrophils (%) (Auto) 69.8 % Lymphocytes (%) (Auto) 18.3 % Monocytes (%) (Auto) 8.4 % Eosinophils (%) (Auto) 0.5 % Basophils (%) (Auto) 0.2 % Neutrophils # (Auto) 6.06 K/uL Lymphocytes # (Auto) 1.59 K/uL Monocytes # (Auto) 0.73 K/uL Eosinophils # (Auto) 0.04 K/uL Basophils # (Auto) 0.02 K/uL RDW Standard Deviation 53.3 fL RDW Coefficient of Variation 16.9 % Immature Granulocyte % (Auto) 2.8 % Immature Granulocyte # (Auto) 0.24 K/uL Sodium Level 146 mmol/L Potassium Level 3.4 mmol/L Chloride Level 113 mmol/L Carbon Dioxide Level 25 mmol/L Anion Gap 8.0 mmol/L Blood Urea Nitrogen 12 mg/dl Creatinine 0.81 mg/dl Est Creatinine Clear Calc Drug Dose 49.9 ml/min Estimated GFR () 76.2 Estimated GFR (Non- 65.8 BUN/Creatinine Ratio 14.4 Random Glucose 92 mg/dl Calcium Level 8.0 mg/dl Magnesium Level 2.3 mg/dl Assessment and Plan 85 yo female with paraplegia for 10 years, presented after being dropped at assisted living facility, suffered right distal femur and proximal tib/fib fracture, for several weeks prior to admission on 09/30/2016, she had poor oral intake, spitting up or vomiting most meals, difficulty swallowing, had BRET on admission. Orthopedics recommended non-operative management with brace. 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 no discharge today, probably not tomorrow, recommend a SNF for higher level of care unless she can have 24 care at home going forward - Hypotension: resolved after 36 hours , stable hypotension was due to dehydration, resolved with aggressive IV fluids - Hypertension: into the 170's systolic yesterday, added back Metoprolol, Lisinopril, Norvasc and Imdur and BP much better today, stable - BRET: baseline Cr 1.1, improved to 1.0 from 2.0, resolved, likely prerenal with poor oral intake and she was likely taking her Lisinopril which would compound issue - atrial fibrillation: rates in 90-100's, metoprolol resumed yesterday, not on anticoagulation chronically, because high risk on the fall, family understand about this - E coli UTI associated with chronic garcia: Keflex 500mg BID, need to complete 10 days total due to garcia catheter, afebrile - Dysphagia: unclear etiology, likely because of age and dysfunctioning, family very concerned due to dehydration and potential malnourishment if she cannot eat Protonix PO BID, Ranitidine 150 daily consult GI for recommendations, EGD would not happen until Wednesday IF that would be recommended but patient not sure she would even want EGD, confirmed with patient again she declined EGD family aware of this, discussed with power of prosecuting attorney son and daughter in bedside, patient is do not resuscitation, comfort feeding from now on, palliative care consult requested, patient's son who is the power of prosecuting attorney is very interested to talk to palliative care - Constipation: Miralax, suppository PRN Hypernatremia with sodium 146, encourage free water intake, continue IV fluid, but will change to half NSS Plan: continue current therapies, GI consult, keep over weekend, hold on going to [facility] on Wednesday depending on what GI wants to do for dysphagia work up and now family and patient not agreeable to [facility] Likely going home with the caregiver hour increased after talking to palliative care, will need to setting up the goal of care, and we are sure she is comfort feeding, patient, family, nursing staff updated Continued [facility] stay due to: ambulation difficulties Discharge planning: uncertain
[2016-10-05] MEDS: SODIUM CHLORIDE 0.45% 1000ML 1,000 ML IV SCH (09:35)
--- NOTE | 2016-10-05 10:07 | Gastroenterology Progress Note ---
Progress Note Date of Service: Oct 05, 2016 Subjective Pt evaluation today including: conversation w/ patient, conversation w/ family , physical exam, chart review, review of inpatient medication list Patient reports stable symptoms of oropharyngeal dysphagia. She is to have a speech language pathology evaluation today for hopes to improve symptoms in anticipation of going home. She declines endoscopic evaluation. Taking medications with pudding successfully. Review of Systems Constitutional: + fatigue, No chills, No fever Abdomen: + see HPI, No GI bleeding, No nausea, No odynophagia, No pain, No vomiting Psych: No problem reported Medications Current Inpatient Medications Medications (Trade) Dose Ordered Sig/Adam Route Start Time Stop Time Status Last Admin Dose Admin Acetaminophen (Tylenol Tab) 650 mg Q4H PRN PO 09/30/16 00:00 10/30/16 00:00 10/03/16 00:25 650 MG Ondansetron HCl (Zofran Inj) 4 mg Q6H PRN IV 09/30/16 00:00 10/30/16 00:00 09/30/16 13:53 4 MG Enteral Nutritional Formula (Boost) 1 can TID PO 09/30/16 14:00 10/30/16 13:59 10/04/16 09:25 1 CAN Morphine Sulfate (Oramorph Sr Tab) 15 mg Q12 PRN PO 10/01/16 15:00 10/15/16 14:59 10/01/16 15:38 15 MG Morphine Sulfate (MoRPHine SULFATE IR TAB) 15 mg QAM PRN PO 10/01/16 15:00 10/15/16 14:59 Ranitidine HCl (zANTac TAB) 150 mg QPM PO 10/02/16 21:00 11/01/16 20:59 10/04/16 21:29 150 MG Al Hydrox/Mg Hydrox/Simethicone (Maalox Max Susp) 15 ml Q6H PRN PO 10/02/16 09:15 11/01/16 09:14 10/02/16 13:18 15 ML Metoprolol Succinate (Toprol Xl Tab) 50 mg QAM PO 10/03/16 09:00 11/02/16 08:59 10/05/16 09:12 50 MG Cephalexin Monohydrate (Keflex Cap) 500 mg BID PO 10/02/16 21:00 10/05/16 23:59 10/05/16 09:05 500 MG Amlodipine Besylate (Norvasc Tab) 5 mg QAM PO 10/04/16 09:00 11/03/16 08:59 10/05/16 09:11 5 MG Furosemide (Lasix Tab) 20 mg QAM PO 10/04/16 09:00 11/03/16 08:59 10/05/16 09:08 20 MG Lisinopril (Zestril Tab) 10 mg QAM PO 10/04/16 09:00 11/03/16 08:59 10/05/16 09:13 10 MG Pantoprazole Sodium (Protonix Tab) 40 mg BID PO 10/03/16 21:00 11/02/16 20:59 10/05/16 09:12 40 MG Isosorbide Mononitrate (Imdur Ext Rel Tab) 30 mg QAM PO 10/04/16 09:00 11/03/16 08:59 10/05/16 09:07 30 MG Polyethylene (Miralax Powder Packet) 17 gm DAILY PO 10/04/16 09:00 11/03/16 08:59 10/04/16 10:18 17 GM Bisacodyl (Dulcolax Supp) 10 mg DAILY PRN [place] 10/03/16 15:00 11/02/16 14:59 10/04/16 15:48 10 MG Miconazole Nitrate 1 appln 1 appln BID PRN EXT 10/03/16 21:15 11/02/16 21:14 10/03/16 21:50 1 APPLN Sodium Chloride (1/2 Nss 1000ml) 1,000 ml @ 50 mls/hr Q20H IV 10/05/16 09:45 11/04/16 09:44 10/05/16 09:35 50 MLS/HR Objective Vital Signs Date Time Temp Pulse Resp B/P Pulse Ox O2 Delivery O2 Flow Rate FiO2 10/05/16 09:15 Room Air 10/05/16 09:03 108 158/88 10/05/16 07:33 97 Room Air 10/05/16 07:31 36.7 98 16 147/91 97 Room Air 10/04/16 23:15 Room Air 10/04/16 23:00 36.6 89 16 100/72 97 Room Air 3/26/17 21:39 149/83 10/04/16 15:50 Room Air 10/04/16 15:39 36.6 93 17 152/96 97 Room Air 10/04/16 10:25 Room Air Physical Exam General Appearance: no apparent distress Eyes: EOMI ENT: + pertinent finding (poor dentition) Respiratory/Chest: lungs clear, normal breath sounds, no respiratory distress Cardiovascular: regular rate, rhythm, no gallop Abdomen: normal bowel sounds, non tender, soft Neurologic/Psych: alert, normal mood/affect, oriented x 3 Skin: warm/dry Laboratory Results Last 24 Hours Test 10/05/16 05:50 10/05/16 09:36 White Blood Count 8.68 K/uL Red Blood Count 3.81 M/uL Hemoglobin 10.4 g/dL Hematocrit 32.6 % Mean Corpuscular Volume 85.6 fL Mean Corpuscular Hemoglobin 27.3 pg Mean Corpuscular Hemoglobin Concent 31.9 g/dl Platelet Count 309 K/uL Mean Platelet Volume 9.4 fL Neutrophils (%) (Auto) 69.8 % Lymphocytes (%) (Auto) 18.3 % Monocytes (%) (Auto) 8.4 % Eosinophils (%) (Auto) 0.5 % Basophils (%) (Auto) 0.2 % Neutrophils # (Auto) 6.06 K/uL Lymphocytes # (Auto) 1.59 K/uL Monocytes # (Auto) 0.73 K/uL Eosinophils # (Auto) 0.04 K/uL Basophils # (Auto) 0.02 K/uL RDW Standard Deviation 53.3 fL RDW Coefficient of Variation 16.9 % Immature Granulocyte % (Auto) 2.8 % Immature Granulocyte # (Auto) 0.24 K/uL Sodium Level 146 mmol/L Potassium Level 3.4 mmol/L Chloride Level 113 mmol/L Carbon Dioxide Level 25 mmol/L Anion Gap 8.0 mmol/L Blood Urea Nitrogen 12 mg/dl Creatinine 0.81 mg/dl Est Creatinine Clear Calc Drug Dose 49.9 ml/min Estimated GFR () 76.2 Estimated GFR (Non- 65.8 BUN/Creatinine Ratio 14.4 Random Glucose 92 mg/dl Calcium Level 8.0 mg/dl Magnesium Level 2.3 mg/dl Assessment and Plan Patient is a 85 year-old female with a history of chronic cough and what appears to be oropharyngeal dysfunction, possibly worsened by poor dentition. 1. Agree with speech language pathology evaluation today. 2. Continue aspiration precautions. 3. Supportive care per primary team. 4. Patient declines invasive work up. Agree with ERICK Dyer as above Abd: Soft, NT, ND, +BS Continue supportive care Continue current therapy
[2016-10-05 11:53] VITALS: BP 133/81; PULSE 95; O2SAT 95
[2016-10-05 15:03] VITALS: BP 135/84; PULSE 97; TEMP 36.7; O2SAT 94
[2016-10-05] MEDS: RANITIDINE HCL 150 MG TAB PO SCH (20:38)
[2016-10-05 22:45] VITALS: BP 137/79; PULSE 84; TEMP 36.6; O2SAT 98
[2016-10-06] MEDS: SODIUM CHLORIDE 0.45% 1000ML 1,000 ML IV SCH (05:14)
[2016-10-06 05:46] LABS: HEMATOCRIT 30.8 % (37-47); MEAN CELL VOLUME 85.8 fL (80-100); MEAN CORPUSCULAR HEMOGLOBIN 27.9 pg (25-34); MEAN CORPUSCULAR HGB CONC 32.5 g/dl (32-36); PLATELET COUNT 315 K/uL (130-400); RED BLOOD COUNT 3.59 M/uL (4.2-5.4)
[2016-10-06 06:12] LABS: BUN/CREATININE RATIO 14.8 (10-20); CALCIUM 8.3 mg/dl (8.5-10.1); CREATININE 0.73 mg/dl (0.60-1.20); POTASSIUM 3.9 mmol/L (3.5-5.1)
[2016-10-06 07:35] LABS: BASO ABS # 0.16 K/uL (0-0.2); BASOPHIL % 1.8 %; COMPLETE YES; ECHINOCYTES 1+; EOSINOPHIL % 0.9 %; GIANT PLATELETS 1+; LYMPH ABS # 1.59 K/uL (1.2-3.4); LYMPHOCYTE % 17.5 %; MICROCYTOSIS PRESENT; MYELOCYTE % 1.8 %; NEUTROPHILS % 76.2 %; POLYCHROMASIA 1+
[2016-10-06 07:52] VITALS: BP 154/87; PULSE 87; TEMP 36.6; O2SAT 97
[2016-10-06] MEDS: BOOST VANILLA PO SCH ×4 (09:00→12:57)
[2016-10-06] MEDS: POLYETHYLENE (MIRALAX) 17 GM PACK PO SCH (09:00)
[2016-10-06] MEDS: LISINOPRIL 10 MG TAB PO SCH (09:12)
[2016-10-06] MEDS: METOPROLOL SUCC 50MG EXT REL TAB PO SCH (09:12)
[2016-10-06] MEDS: ISOSORBIDE MONONITRATE 30 MG TABCR PO SCH (09:12)
[2016-10-06] MEDS: AMLODIPINE BESYLATE 5 MG TAB PO SCH (09:12)
[2016-10-06] MEDS: FUROSEMIDE 20 MG TAB PO SCH (09:12)
[2016-10-06] MEDS: PANTOprazole SOD 40 MG TAB PO SCH (09:13)
[2016-10-06] MEDS ORDERED: MCTP EXT (10:40)
[2016-10-06] MEDS ORDERED: KFL/250 PO (10:44)
--- NOTE | 2016-10-06 10:51 | Palliative Care Consultation ---
Consultation Date of Consultation: Oct 06, 2016. Requesting Physician: Dr. Nguyen Attending Physician: Dr. Nguyen Reason for Consultation: Goals of care History of Present Illness This 85 year old female patient presented to the ED a week ago after a fall at home while she was using the stand assist lift. X-rays revealed left distal femur and proximal tib/fib fractures. Fractures are being treated non- surgically. CXR negative for anything acute. Creatinine was elevated at 2.00 but has improved to 0.73. History was obtained from patient and family. Patient' s daughters state that patient was not feeling well for a few days before admission-- vomiting what looked like some blood streaked emesis. Although, patient states she was not feeling ill. Patient has been paraplegic for last 10 years and is bed-bound, but does get OOB to chair with lift. She has home caregivers through [employer] and lots of family support. However, family was having some concerns about patient going straight home after hospital stay, but patient was adamant about going back to her own home. Patient was seen by GI for her persistent "spitting up," was determined to have GERD and declined any procedures such as EGD. She had a speech evaluation-- no aspiration but now is on aspiration precautions, slippery diet, and GERD precautions. Palliative care consulted to establish goals of care. I met with the patient and her two daughters, Elaine and Yahaira. Patient is awake, alert and oriented x4 but very hard of hearing. We discussed goals of care. The patient stated she wants to go home where she is happy and comfortable. She is increasing her [employer] caregivers to 12 hours a day and will have family there with her very often. Patient has a POLST form already completed which states: DNR/DNI, comfort measures only, limited use of antibiotics, and no artificial hydration or nutrition. Patient states she has a great quality of life at her apartment, as there are 13 other women who live in her building who are all her friends. Patient stated, "I'm very blessed with my family and friends, and the people who care for me." Her goal is to stay at home as long as it's possible, and her daughters both stated that family would help to keep her there as well. The plan will be to transition to hospice once patient starts to decline. Patient stated "I'm anxious to go()." Past Medical/Surgical History Medical History: Atrial fibrillation Paraplegia Social History Smoking Status: Never Smoker History of Alcohol Use: No Drug Use: none Marital Status: single Housing Status: other (apartment with waiver services/caregivers) Occupation Status: retired Review of Systems Constitutional: No chills, No fever, No weight loss Respiratory: No cough, No dyspnea on exertion, No shortness of breath Cardiac: + edema (left lower extremity), No chest pain Abdomen: + vomiting (has occasional "spitting up"), No nausea, No pain Female : No problem reported Psychiatric: No anxiety, No depression symptoms chronic indwelling garcia catheter Allergies Coded Allergies: Oxycodone (Verified Allergy, Severe, "LOOPEY"-CONFUSED, 09/29/16) Medications Current Inpatient Medications Medications (Trade) Dose Ordered Sig/Adam Route Start Time Stop Time Status Last Admin Dose Admin Acetaminophen (Tylenol Tab) 650 mg Q4H PRN PO 09/30/16 00:00 10/30/16 00:00 10/03/16 00:25 650 MG Ondansetron HCl (Zofran Inj) 4 mg Q6H PRN IV 09/30/16 00:00 10/30/16 00:00 09/30/16 13:53 4 MG Enteral Nutritional Formula (Boost) 1 can TID PO 09/30/16 14:00 10/30/16 13:59 10/04/16 09:25 1 CAN Morphine Sulfate (Oramorph Sr Tab) 15 mg Q12 PRN PO 10/01/16 15:00 10/15/16 14:59 10/01/16 15:38 15 MG Morphine Sulfate (MoRPHine SULFATE IR TAB) 15 mg QAM PRN PO 10/01/16 15:00 10/15/16 14:59 Ranitidine HCl (zANTac TAB) 150 mg QPM PO 10/02/16 21:00 11/01/16 20:59 10/05/16 20:38 150 MG Al Hydrox/Mg Hydrox/Simethicone (Maalox Max Susp) 15 ml Q6H PRN PO 10/02/16 09:15 11/01/16 09:14 10/02/16 13:18 15 ML Metoprolol Succinate (Toprol Xl Tab) 50 mg QAM PO 10/03/16 09:00 11/02/16 08:59 10/06/16 09:12 50 MG Amlodipine Besylate (Norvasc Tab) 5 mg QAM PO 10/04/16 09:00 11/03/16 08:59 10/06/16 09:12 5 MG Furosemide (Lasix Tab) 20 mg QAM PO 10/04/16 09:00 11/03/16 08:59 10/06/16 09:12 20 MG Lisinopril (Zestril Tab) 10 mg QAM PO 10/04/16 09:00 11/03/16 08:59 10/06/16 09:12 10 MG Pantoprazole Sodium (Protonix Tab) 40 mg BID PO 10/03/16 21:00 11/02/16 20:59 10/06/16 09:13 40 MG Isosorbide Mononitrate (Imdur Ext Rel Tab) 30 mg QAM PO 10/04/16 09:00 11/03/16 08:59 10/06/16 09:12 30 MG Polyethylene (Miralax Powder Packet) 17 gm DAILY PO 10/04/16 09:00 11/03/16 08:59 10/04/16 10:18 17 GM Bisacodyl (Dulcolax Supp) 10 mg DAILY PRN CO 10/03/16 15:00 11/02/16 14:59 10/04/16 15:48 10 MG Miconazole Nitrate 1 appln 1 appln BID PRN EXT 10/03/16 21:15 11/02/16 21:14 10/03/16 21:50 1 APPLN Sodium Chloride (1/2 Nss 1000ml) 1,000 ml @ 50 mls/hr Q20H IV 10/05/16 09:45 11/04/16 09:44 10/06/16 05:14 50 MLS/HR Physical Exam Date Time Temp Pulse Resp B/P Pulse Ox O2 Delivery O2 Flow Rate FiO2 10/06/16 07:52 36.6 87 16 154/87 97 Room Air 10/06/16 07:20 Room Air 10/06/16 00:45 Room Air 10/05/16 22:45 36.6 84 18 137/79 98 Room Air 10/05/16 20:20 Room Air 10/05/16 15:03 36.7 97 16 135/84 94 Room Air 10/05/16 11:53 95 133/81 95 Room Air General Appearance: no apparent distress, + obese ENT: + pertinent finding (hard of hearing) Neck: no JVD Respiratory: lungs clear, no respiratory distress, no accessory muscle use Cardiovascular: + irregularly irregular, + normal peripheral pulses Abdomen: normal bowel sounds, non tender, soft Musculoskeletal: pertinent finding (left leg with +1 pitting edema and leg brace) Neurologic/Psychiatric: alert, normal mood/affect, oriented x 3 Laboratory Results Last 24 Hours Test 10/06/16 05:10 White Blood Count 9.10 K/uL Red Blood Count 3.59 M/uL Hemoglobin 10.0 g/dL Hematocrit 30.8 % Mean Corpuscular Volume 85.8 fL Mean Corpuscular Hemoglobin 27.9 pg Mean Corpuscular Hemoglobin Concent 32.5 g/dl Platelet Count 315 K/uL Mean Platelet Volume 10.0 fL RDW Standard Deviation 53.7 fL RDW Coefficient of Variation 17.1 % Nucleated RBC Absolute Count (auto) 0.03 K/uL Neutrophils % (Manual) 76.2 % Lymphocytes % (Manual) 17.5 % Monocytes % (Manual) 1.8 % Eosinophils % (Manual) 0.9 % Basophils % (Manual) 1.8 % Myelocytes % 1.8 % Nucleated Red Blood Cells % 0.3 % Neutrophils # (Manual) 6.93 K/uL Total Absolute Neutrophils 6.93 K/uL Lymphocytes # (Manual) 1.59 K/uL Total Absolute Lymphocytes 1.59 K/uL Monocytes # (Manual) 0.16 K/uL Eosinophils # (Manual) 0.08 K/uL Basophils # (Manual) 0.16 K/uL Myelocytes # 0.16 K/uL Giant Platelets 1+ Polychromasia 1+ Microcytosis PRESENT Echinocytes 1+ Sodium Level 145 mmol/L Potassium Level 3.9 mmol/L Chloride Level 112 mmol/L Carbon Dioxide Level 25 mmol/L Anion Gap 8.0 mmol/L Blood Urea Nitrogen 11 mg/dl Creatinine 0.73 mg/dl Est Creatinine Clear Calc Drug Dose 55.3 ml/min Estimated GFR () 86.4 Estimated GFR (Non- 74.6 BUN/Creatinine Ratio 14.8 Random Glucose 82 mg/dl Calcium Level 8.3 mg/dl Assessment & Plan Palliative Performance Scale: 40 % Problem list: Paraplegia Non-ambulatory/bed-bound S/P fall- left distal femur and proximal tib/fib fractures UTI GERD Goals of care (Z51.5) Palliative care plan: discussed with patient, daughter, Rafy Nguyen. -Patient is DNR/DNI per her wishes. -POLST form already completed: DNR/DNI, CMO & PRESIDENT, limited use of abx, and no artificial hydration or nutrition. -Home to apartment with caregivers. -Will eventually transition to hospice, patient does not want to come back to the hospital. -Carolyn lift ordered for home. -Chronic indwelling Garcia catheter. -She denies any pain or discomfort either here or when she's at home. -Continue with feeding slippery diet, with aspiration and GERD precautions. Patient and family verbalized understanding of this. Thank you for involving me in the care of this marvin patient and her family. Contact me if there are any further palliative care needs.
[2016-10-06] MEDS ORDERED: CEPHALEXIN MONOHYDRATE 250 MG CAP PO ONE (11:00)
--- NOTE | 2016-10-06 12:05 | Discharge Instructions ---
Discharge Instructions Date of Service Oct 06, 2016. Admission Reason for Admission: Fx Of Distal Femur,Fx Of Proximal End Tibia/Fibula Discharge Discharge Diagnosis / Problem: Distal femur, proximal tib/fib fracture: non- operative management Discharge Goals Goal(s): Decrease discomfort, Improve disease control, Learn about illness, Diagnostic testing, Specific goals Activity Recommendations Activity Limitations: as noted below . Instructions / Follow-Up Instructions / Follow-Up you have Distal femur, proximal tib/fib fracture: non-operative management, stable, you need to follow up the all the instructions from orthopedic service, includes activity, weight bearing, and follow up plan in the office and timing of repeating xray. Initial plan was for [facility], you you want to back to [facility] living, please call to pcp if need help for care. you have E coli Urinary track infection, associated with chronic garcia: Keflex need to be continued as instructed, you have Dysphagia: continue comfort feeding from now on. - you need to follow up with your primary care physician in 1 week, - call your pcp if have if has any questions - take medication as instructed, - fall precaution - you need to follow up with your subspecialist Current Hospital Diet Patient's current hospital diet: Regular Diet Discharge Diet Recommended Diet: Regular Diet (comfort feeding as tolerated) Pending Studies Studies pending at discharge: no Laboratory Results Lipid Panel Test 08/14/16 11:38 Range/Units Triglycerides Level 137 0-150 mg/dl Cholesterol Level 145 0-200 mg/dl HDL Cholesterol 59 mg/dl Cholesterol/HDL Ratio 2.5 LDL Cholesterol, Calculated 59 mg/dl Medical Emergencies . Who to Call and When: Medical Emergencies: If at any time you feel your situation is an emergency, please call 911 immediately. . Non-Emergent Contact Non-Emergency issues call your: Primary Care Provider, Specialist (orthopedic) . . "Provider Documentation" section prepared by Mendoza Nguyen. VTE Core Measure Inpt VTE Proph given/why not?: Enoxaparin (Lovenox)SQ, SCD's
[2016-10-06] MEDS ORDERED: CEPHALEXIN MONOHYDRATE 250 MG CAP PO SCH (13:00)
[2016-10-06 14:09] VITALS: BP 154/87; PULSE 87; TEMP 36.6; O2SAT 97
--- NOTE | 2016-10-06 16:01 | Discharge Summary ---
Discharge Summary Date of Service Oct 06, 2016. Discharge Summary Admission Date: Sep 29, 2016 at 23:54 Discharge Date: Oct 06, 2016 Discharge Disposition: Home Principal Diagnosis: Distal femur, proximal tib/fib fracture: non-operative management Problems/Secondary Diagnoses: (1) Atrial fibrillation Status: Chronic Immunizations: Have You Had Influenza Vaccine: Unknown History of Tetanus Vaccine?: Unknown History of Pneumococcal: Unknown History of Hepatitis B Vaccine: Unknown Consultations: Orthopedic palliative care palliative care Medication Reconciliation New Medications: Cephalexin Monohydrate (Keflex) 250 Mg Cap 250 MG PO QID for 2 Days, #8 CAP Miconazole Nitrate (Desenex Shake Powder) 43 Appln/43 Gm Powd 1 APPLN EXT BID PRN for Affected Skin Folds for 7 Days Continued Medications: Amlodipine (Norvasc) 5 Mg Tab 5 MG PO QAM, TAB Ascorbic Acid (Vitamin C) 500 Mg Tab 500 MG PO DAILY Aspirin (Aspirin Ec) 81 Mg Tab 81 MG PO DAILY Calcium (Calcium) 600 Mg Tab 600 MG PO DAILY Cranberry (Vaccinium Macrocarp (Cranberry) 500 Mg Cap 500 MG PO DAILY Docusate Sodium (Docusate Sodium) 100 Mg Cap 250 MG PO DAILY for 7 Days, #18 CAP Ferrous Sulfate (Kp Ferrous Sulfate) 325 Mg Tab 1 TAB PO TID for 30 Days, #90 TAB 3 Refills Furosemide (Lasix) 20 Mg Tab 20 MG PO QAM, TAB Isosorbide Mononitrate Ext Rel (Imdur Ext Rel) 30 Mg Ertab 30 MG PO QAM Lisinopril (Zestril) 10 Mg Tab 10 MG PO QAM Methylcellulose (Laxative) (Fiber Therapy) 500 Mg Tab 500 MG PO DAILY Metoprolol Succ (Toprol Xl) (Toprol-Xl) 50 Mg Tabcr 50 MG PO QAM Morphine Cont Rel (Ms Contin) 15 Mg Tabcr 15 MG PO Q12 PRN for Pain, TAB Morphine Sulfate Ir (Morphine Sulfate Ir) 15 Mg Tab 15 MG PO QAM PRN for Pain, TAB Multiple Vitamins W/ Minerals (Multivitamin Adults) 1 Tab Tab 1 TAB PO DAILY Omeprazole (Prilosec) 20 Mg Capcr 20 MG PO DAILY, CAP Oxybutynin Chloride (Ditropan) 5 Mg Tab 5 MG PO BID, TAB Potassium Chloride (Micro-K Ext Rel) 10 Meq Capcr 10 MEQ PO BID, CAP Discharge Exam Tired, feeling generally okay, ready to go home Review of Systems: Constitutional: + fatigue, + weakness, No chills, No fever, No problem reported, No sweats, No weight loss Eyes: No diplopia, No discharge, No eye pain, No problem reported, No redness, No worsening of vision ENT: No dental problems, No hearing loss, No nasal symptoms, No problem reported, No sore throat, No tinnitus, No trouble swallowing, No unusual epistaxis Respiratory: + shortness of breath Cardiovascular: No PND, No chest pain, No claudication, No edema, No orthopnea, No palpitations, No problem reported Abdomen: No GI bleeding, No constipation, No diarrhea, No nausea, No pain, No problem reported, No vomiting Genitourinary - Female: No dysmenorrhea, No dysuria, No hematuria, No menorrhagia, No metrorrhagia, No , No problem reported, No rash, No urinary frequency, No urinary incontinence, No urinary retention, No urinary urgency, No vaginal bleeding, No vaginal discharge, No vaginal itching, No vulvodynia Neurologic: No balance problems, No memory loss, No numbness/tingling, No paralysis, No problem reported, No vertigo, No weakness Psychiatric: No anhedonism, No anxiety, No depression symptoms, No insomnia , No problem reported, No substance abuse Endocrine: No excessive thirst, No excessive urination, No fatigue, No problem reported Hematologic / Lymphatic: No abnormal bleeding/bruising, No clotting problems , No night sweats, No problem reported, No swollen lymph nodes Integumentary: No bleeding, No color change, No itch, No new/changing skin lesions, No problem reported, No rash Physical Exam: General Appearance: WD/WN, + thin, + pertinent finding (frail chronically ill-looking) Eyes: normal inspection, PERRL, EOMI ENT: normal ENT inspection, hearing grossly normal Neck: supple, no adenopathy Respiratory/Chest: chest non-tender, + decreased breath sounds Cardiovascular: regular rate, rhythm, + pertinent finding (2+ edema) Abdomen / GI: normal bowel sounds, non tender, soft, no organomegaly, no pulsatile mass Extremities: normal inspection, no calf tenderness, normal capillary refill , no pedal edema Neurologic/Psychiatric: field artillery basic II-XII nml as tested, no motor/sensory deficits , alert, normal mood/affect, normal reflexes, oriented x 3 (but decreased hearing) Skin: normal color Hospital Course 85 yo female with paraplegia for 10 years, presented after being dropped at assisted living facility, suffered right distal femur and proximal tib/fib fracture, for several weeks prior to admission on 09/30/2016, she had poor oral intake, spitting up or vomiting most meals, difficulty swallowing, had BRET on admission. Orthopedics recommended non-operative management with brace. 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 - Hypotension: resolved hypotension was due to dehydration, resolved with aggressive IV fluids - Hypertension: into the 170's systolic yesterday, added back Metoprolol, Lisinopril, Norvasc and Imdur and BP much better today, stable - Acute kidney injury upon admission BRET: baseline Cr 1.1, improved to 1.0 from 2.0, resolved, likely prerenal with poor oral intake and she was likely taking her Lisinopril which would compound issue - atrial fibrillation: rates in 90-100's, metoprolol resumed yesterday, not on anticoagulation chronically, because high risk on the fall, family understand about this - E coli UTI associated with chronic garcia: Keflex 500mg BID, need to complete 10 days total due to garcia catheter, afebrile - Dysphagia: unclear etiology, likely because of age and dysfunctioning, family very concerned due to dehydration and potential malnourishment if she cannot eat Protonix PO BID, Ranitidine 150 daily consulted GI for recommendations, patient again she declined EGD and 1 to be in comfort feeding was on the risk of choking and aspiration family aware of this, discussed with power of state's attorney son and daughter in bedside, patient is do not resuscitation, comfort feeding from now on, palliative care saw the patient, post form signed - Constipation: Miralax, suppository PRN Hypernatremia with sodium 146 upon admission, encourage free water intake, c Plan: Discharged home with the comfort feeding, follow-up with orthopedic as instructed, enter to hospice care if patient and family ready, can communication with PCP for further help Care plan has been discussed with patient, patient's son and daughter in bedside several times. Instructions / Follow-Up you have Distal femur, proximal tib/fib fracture: non-operative management, stable, you need to follow up the all the instructions from orthopedic service, includes activity, weight bearing, and follow up plan in the office and timing of repeating xray. 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 you have E coli Urinary track infection, associated with chronic garcia: Keflex need to be continued as instructed, you have Dysphagia: continue comfort feeding from now on. - you need to follow up with your primary care physician in 1 week, - call your pcp if have if has any questions - take medication as instructed, - fall precaution - you need to follow up with your subspecialist Total Time Spent: Greater than 30 minutes This includes examination of the patient, discharge planning, medication reconciliation, and communication with other providers. Discharge Instructions Please refer to the electronic Patient Visit Report (Discharge Instructions) for additional information. Additional Copies To Oscar Prieto M.D.
== END 2016-10-06 15:23 | disposition home health service (06) | DRG 543 ==
LOC: ENRESERVDT → ENRESERVTM → EDBD 21:16 → C.EDA 21:18 → C.3E 23:54
PROVIDERS: ADMIT Hospitalist; ATTEND Hospitalist
DX: M80.052A Age-related osteoporosis with current pathological fracture, left femur, initial encounter for fracture (principal); G82.20 Paraplegia, unspecified; E87.0 Hyperosmolality and hypernatremia; N17.9 Acute kidney failure, unspecified; M80.062A Age-related osteoporosis with current pathological fracture, left lower leg, initial encounter for fracture; N39.0 Urinary tract infection, site not specified; T83.511A Infection and inflammatory reaction due to indwelling urethral catheter, initial encounter; K21.9 Gastro-esophageal reflux disease without esophagitis; K59.00 Constipation, unspecified; I48.2 Chronic atrial fibrillation; E86.0 Dehydration; M85.80 Other specified disorders of bone density and structure, unspecified site; B96.20 Unspecified Escherichia coli [E. coli] as the cause of diseases classified elsewhere; I12.9 Hypertensive chronic kidney disease with stage 1 through stage 4 chronic kidney disease, or unspecified chronic kidney disease; N18.2 Chronic kidney disease, stage 2 (mild); R13.10 Dysphagia, unspecified; W04.XXXA Fall while being carried or supported by other persons, initial encounter; Y84.6 Urinary catheterization as the cause of abnormal reaction of the patient, or of later complication, without mention of misadventure at the time of the procedure; Y92.009 Unspecified place in unspecified non-institutional (private) residence as the place of occurrence of the external cause

== ENCOUNTER → 2016-11-06 | Outpatient (CLI) | payer OTHER ==
[~2016-11-06] MED LIST changes: -ACET-1311; +AMLO-110 PO; +ASCA500 PO; +ASPI81TA28 PO; +CALC600T37 PO; -CEPH500C; +CRAN500C2 PO; -DLCS; +DOCU100C31 PO; -DRV100; +DTR/5 PO; -DXY100; +FERR1TAB13 PO; -FLEETS; -FLTE; -FRRS300; +FURO-85 PO; -LACT10SO17; -LSX20; +MCTP EXT; -MED PASS; -METAMUCIL; +METH1TAB66 PO; +MORP15TA PO; +MORP15TA19 PO; +MULT-922 PO; -PANT40TA; -POTA10CA28; +POTA10CA28 PO; +PRLSR20 PO; -PROM1SUP19; -PROM25TA; -PROSTAT; -PROVENTIL MDI; -STRESS; -TRAM-10; -[UNRECOGNIZED DRUG - OTHER]; -[UNRECOGNIZED DRUG - OTHER]
[2016-11-06 13:00] LABS: MANUAL MICROSCOPIC REQUIRED? YES; URINE APPEARANCE CLOUDY (CLEAR); URINE BILIRUBIN NEG (NEG); URINE COLOR YELLOW; URINE NITRITE NEG (NEG); URINE PH 5.5 (4.5-7.5); UROBILINOGEN NEG (NEG)
[2016-11-06 13:04] LABS: REVIEW REQ? NO
[2016-11-06 13:32] LABS: URINE BACTERIA 3+ (NEG); URINE WBC >30 /hpf (0-5)
--- NOTE | 2016-11-13 09:20 | CODING QUERY MEDICAL NECESSITY ---
CQSUPPORTING DIAGNOSIS NEEDED A supporting diagnosis is required for the test/procedure performed on this patient in order for us to be reimbursed by the patient's insurance. Please provide a supporting diagnosis for the following test/procedure listed below next to the test name along with your signature. *If there is no additional diagnosis for this patient that would support the following test/procedure please document that below next to the test/procedure. Test(s)/Procedure(s) that require a supporting diagnosis: DOS 11/06/16 URINE CULTURE Provider Signature: Date: Thank you Chary Mata [employer] Information Management Once completed, please kindly fax back to [phone] For questions please call [phone]
== END | disposition home or self-care (01) ==
LOC: C.LABSPEC 11:44
PROVIDERS: ATTEND Internal Medicine
DX: N19 Unspecified kidney failure (principal); N31.9 Neuromuscular dysfunction of bladder, unspecified; R39.9 Unspecified symptoms and signs involving the genitourinary system

== ENCOUNTER → 2016-11-27 | Outpatient (CLI) | payer OTHER ==
[2016-11-27 12:42] LABS: MANUAL MICROSCOPIC REQUIRED? YES; REVIEW REQ? NO; URINE APPEARANCE CLOUDY (CLEAR); URINE COLOR AMBER; URINE NITRITE NEG (NEG); URINE SPECIFIC GRAVITY >= 1.030 (1.000-1.030); UROBILINOGEN NEG (NEG)
[2016-11-27 12:46] LABS: URINE BILIRUBIN NEG (NEG)
[2016-11-27 12:51] LABS: URINE BACTERIA 3+ (NEG); URINE WBC >30 /hpf (0-5)
== END | disposition home or self-care (01) ==
LOC: C.LABSPEC 11:31
PROVIDERS: ATTEND Internal Medicine
DX: N39.0 Urinary tract infection, site not specified (principal)

== ENCOUNTER → 2016-12-28 | Outpatient (CLI) | payer OTHER ==
[~2016-12-28] MED LIST changes: -DTR/5 PO; +OXYB5TAB74 PO
[2016-12-28 14:43] LABS: HEMATOCRIT 41.1 % (37-47); MEAN CELL VOLUME 86.9 fL (80-100); MEAN CORPUSCULAR HEMOGLOBIN 27.5 pg (25-34); MEAN CORPUSCULAR HGB CONC 31.6 g/dl (32-36); MEAN PLATELET VOLUME 10.1 fL (7.4-10.4); PLATELET COUNT 337 K/uL (130-400); RED BLOOD COUNT 4.73 M/uL (4.2-5.4)
[2016-12-28 14:44] LABS: ALT/SGPT 8 U/L (12-78); AST/SGOT 16 U/L (15-37); BLOOD UREA NITROGEN 7 mg/dl (7-18); BUN/CREATININE RATIO 9.2 (10-20); CARBON DIOXIDE 22 mmol/L (21-32); CHLORIDE 109 mmol/L (98-107); CREATININE 0.73 mg/dl (0.60-1.20); GLUCOSE 105 mg/dl (70-99); POTASSIUM 4.1 mmol/L (3.5-5.1); SODIUM 141 mmol/L (136-145)
[2016-12-28 14:46] LABS: ALB/GLOB RATIO 0.5 (0.9-2); ALKALINE PHOSPHATASE 107 U/L (45-117)
[2016-12-28 20:03] LABS: CALCIUM 8.1 mg/dl (8.5-10.1)
== END | disposition home or self-care (01) ==
LOC: C.LABSPEC 13:11
PROVIDERS: ATTEND Family Medicine Hospice and Palliative Medicine
DX: I50.9 Heart failure, unspecified (principal); N18.9 Chronic kidney disease, unspecified

== ENCOUNTER → 2016-12-29 | Outpatient (CLI) | payer OTHER ==
[~2016-12-29] MED LIST changes: +DTR/5 PO; -OXYB5TAB74 PO
--- NOTE | 2016-12-29 10:16 | DIAGNOSTIC IMAGING REPORT ---
LEFT KNEE 2 VIEWS CLINICAL HISTORY: Follow-up fractures. FINDINGS: AP and crosstable lateral views of the left knee are compared to study dated 09/29/2016. The skeletal structures are osteopenic. There are healing fractures of the proximal tibial metaphysis and the proximal fibula. There is also a healing impacted fracture of the distal femur. There is incomplete bony union of the fragments at this time. Bony overgrowth is identified around the fracture site. A small joint effusion persists. Overlying soft tissue edema is noted. Atherosclerotic calcification is noted in the popliteal artery. IMPRESSION: Healing fractures as above. Electronically signed by: Pb Perla M.D. 12/29/2016 10:15 AM Dictated Date/Time: 12/29/2016 10:12 AM
== END | disposition home or self-care (01) ==
LOC: C.RAD 09:45
PROVIDERS: ATTEND Orthopaedic Surgery Sports Medicine
DX: S72.455D Nondisplaced supracondylar fracture without intracondylar extension of lower end of left femur, subsequent encounter for closed fracture with routine healing (principal); X58.XXXD Exposure to other specified factors, subsequent encounter

== ENCOUNTER → 2017-02-09 | Outpatient (CLI) | payer OTHER ==
[~2017-02-09] MED LIST changes: -DTR/5 PO; +OXYB5TAB74 PO
--- NOTE | 2017-02-09 10:28 | DIAGNOSTIC IMAGING REPORT ---
LEFT KNEE 1 OR 2 VIEWS ROUTINE CLINICAL HISTORY: S72.455D FEMUR FRACTURE COMPARISON: 12/29/2016, 09/29/2016 DISCUSSION: The bones are severely osteopenic. There is a healing fracture of the distal femur with evidence of impaction. The fracture line is still visualized. There is a healing nondisplaced fracture of the proximal tibial metaphysis. There is a healing proximal fibular fracture. Again the fracture line is still visualized. IMPRESSION: Healing fractures of the distal femur, proximal tibial metaphysis, and proximal fibula. The fracture lines are still visualized. Given the time course, this may indicate nonunion. Electronically signed by: Brian Nicholas M.D. 02/09/2017 10:27 AM Dictated Date/Time: 02/09/2017 10:23 AM
== END | disposition home or self-care (01) ==
LOC: C.RAD 09:47
PROVIDERS: ATTEND Orthopaedic Surgery Sports Medicine
DX: S72.455D Nondisplaced supracondylar fracture without intracondylar extension of lower end of left femur, subsequent encounter for closed fracture with routine healing (principal); X58.XXXD Exposure to other specified factors, subsequent encounter

== ENCOUNTER → 2017-03-19 | Outpatient (CLI) | payer OTHER ==
[~2017-03-19] MED LIST changes: +DTR/5 PO; -OXYB5TAB74 PO
[2017-03-19 11:59] LABS: HEMATOCRIT 40.4 % (37-47); MEAN CORPUSCULAR HEMOGLOBIN 29.2 pg (25-34); MEAN CORPUSCULAR HGB CONC 32.4 g/dl (32-36); MEAN PLATELET VOLUME 9.9 fL (7.4-10.4); PLATELET COUNT 341 K/uL (130-400); RED BLOOD COUNT 4.49 M/uL (4.2-5.4); WHITE BLOOD COUNT 6.78 K/uL (4.8-10.8)
[2017-03-19 12:23] LABS: ALT/SGPT 7 U/L (12-78); BLOOD UREA NITROGEN 14 mg/dl (7-18); BUN/CREATININE RATIO 24.4 (10-20); CALCIUM 8.6 mg/dl (8.5-10.1); CARBON DIOXIDE 27 mmol/L (21-32); CHLORIDE 109 mmol/L (98-107); CREATININE 0.59 mg/dl (0.60-1.20); GLUCOSE 95 mg/dl (70-99); POTASSIUM 4.1 mmol/L (3.5-5.1); SODIUM 142 mmol/L (136-145)
[2017-03-19 12:25] LABS: ALB/GLOB RATIO 0.6 (0.9-2); ALKALINE PHOSPHATASE 105 U/L (45-117); AST/SGOT 18 U/L (15-37)
--- NOTE | 2017-03-29 11:18 | CODING QUERY NO DIAGNOSIS ---
: 1929 TREATMENT RENDERED WITHOUT A DIAGNOSIS To promote full compliance with coding requirements relating to patient care, physician participation is requested in all cases of trap puller uncertainty. Please assist us with providing a diagnosis/symptom for the test(s) below: Please provide the original physician order with physician signature and diagnoses for DOS: 03/19/2017 for the following lab tests: CBC W/O DIFF CMP Thank you ColleenPurpleTeal [facility] Information Management Once completed, please kindly fax back to [phone] For questions please call [phone]
--- NOTE | 2017-04-16 08:14 | CODING QUERY NO DIAGNOSIS ---
: 1929 TREATMENT RENDERED WITHOUT A DIAGNOSIS To promote full compliance with coding requirements relating to patient care, physician participation is requested in all cases of arbor press operator uncertainty. Please assist us with providing a diagnosis/symptom for the test(s) below: A diagnosis/symptom was not documented on your Order. A valid diagnosis/symptom is required to bill all insurances. Please remember that we are unable to code a diagnosis of rule out, probable, possible, questionable, or suspected. Tests that require a diagnosis: DOS-03/19/17 * CBC W/O DIFF DIAGNOSIS: * CMP DIAGNOSIS: Provider Signature: Date: Thank you Colleen Jernigan [facility] Information Management Once completed, please kindly fax back to [phone] For questions please call [phone]
--- NOTE | 2017-04-30 08:43 | CODING QUERY NO DIAGNOSIS ---
: 1930 TREATMENT RENDERED WITHOUT A DIAGNOSIS To promote full compliance with coding requirements relating to patient care, physician participation is requested in all cases of shot lighter uncertainty. Please assist us with providing a diagnosis/symptom for the test(s) below: A diagnosis/symptom was not documented on your Order. A valid diagnosis/symptom is required to bill all insurances. Please remember that we are unable to code a diagnosis of rule out, probable, possible, questionable, or suspected. Tests that require a diagnosis for DOS: 03/19/17 * CBC W/O DIFF DIAGNOSIS: * CMP DIAGNOSIS: Provider Signature: Date: Thank you Colleen Jernigan [facility] Once completed, please kindly fax back to [phone] For questions please call [phone]
== END | disposition home or self-care (01) ==
LOC: C.LABSPEC 11:42
PROVIDERS: ATTEND Family Medicine Hospice and Palliative Medicine
DX: R53.81 Other malaise (principal)

== ENCOUNTER → 2017-04-20 | Outpatient (CLI) | payer OTHER ==
[~2017-04-20] MED LIST changes: -DTR/5 PO; +OXYB5TAB74 PO
--- NOTE | 2017-04-20 10:25 | DIAGNOSTIC IMAGING REPORT ---
L KNEE 1 OR 2 VIEWS ROUTINE CLINICAL HISTORY: 86 years-old Female presenting with S72.455D. TECHNIQUE: Frontal and lateral views of the left knee were obtained. COMPARISON: 02/09/2017. FINDINGS: Severe osteopenia. Redemonstration of the impacted transversely oriented fracture of the distal femoral metaphysis. Bridging callus formation noted, although the fracture plane remains evident. Suggestion of smooth sclerotic margins at the fracture plane, unchanged from prior. Persistent linear radiolucency across the fibular head compatible with fracture. Posttraumatic deformity of the tibial metaphysis is not significantly changed from prior. IMPRESSION: 1. Incomplete healing of the impacted distal left femoral metaphysis fracture with smooth sclerotic fracture margins, concerning for nonunion. 2. Persistent fracture plane in the proximal fibula. 3. Posttraumatic deformity of the tibial metaphysis. 4. Severe osteopenia. Electronically signed by: Domingo Kay M.D. 04/20/2017 10:24 AM Dictated Date/Time: 04/20/2017 10:21 AM
== END | disposition home or self-care (01) ==
LOC: C.RAD 09:44
PROVIDERS: ATTEND Orthopaedic Surgery Sports Medicine
DX: S72.455D Nondisplaced supracondylar fracture without intracondylar extension of lower end of left femur, subsequent encounter for closed fracture with routine healing (principal); X58.XXXD Exposure to other specified factors, subsequent encounter; M21.862 Other specified acquired deformities of left lower leg; M85.862 Other specified disorders of bone density and structure, left lower leg

== ENCOUNTER → 2017-05-24 | Outpatient (CLI) | payer OTHER ==
[~2017-05-24] MED LIST changes: +DTR/5 PO; -OXYB5TAB74 PO
--- NOTE | 2017-06-11 10:07 | CODING QUERY MEDICAL NECESSITY ---
Valid Physician Order Needed A valid physician order must be submitted in order to properly bill for the service(s) provided, including date of service(s), valid diagnosis, and physician signature. If these tests are done on a recurring basis the original physican order must be submitted in order to code and bill for the service(s) provided. Please fax us the original, signed physician order so that we may expedite billing to [phone] DOS 05/24/17 * ALBUMIN Thank you Silvina [facility] Information Management
--- NOTE | 2017-06-18 08:46 | CODING QUERY NO DIAGNOSIS ---
TREATMENT RENDERED WITHOUT A DIAGNOSIS To promote full compliance with coding requirements relating to patient care, physician participation is requested in all cases of field operations supervisor uncertainty. Please assist us with providing a diagnosis/symptom for the test(s) below: A diagnosis/symptom was not documented on your Order. A valid diagnosis/symptom is required to bill all insurances. Please remember that we are unable to code a diagnosis of rule out, probable, possible, questionable, or suspected. Tests that require a diagnosis: DOS: 05/24 *ALBUMIN DIAGNOSIS: Provider Signature: Date: Thank you Silvina [facility] [employer] Once completed, please kindly fax back to [phone] For questions please call [phone]
== END | disposition home or self-care (01) ==
LOC: C.LABSPEC 10:03
PROVIDERS: ATTEND Family Medicine Hospice and Palliative Medicine
DX: R53.81 Other malaise (principal)

== ENCOUNTER → 2017-08-11 | Outpatient (CLI) | payer OTHER | END | disposition home or self-care (01) | LOC: C.LABSPEC 14:27 | PROVIDERS: ATTEND Internal Medicine | DX: N31.9 Neuromuscular dysfunction of bladder, unspecified (principal) ==

== ENCOUNTER → 2017-10-07 | Outpatient (CLI) | payer OTHER ==
[~2017-10-07] MED LIST changes: -METO50TA7 PO; +METO50TA8 PO
--- NOTE | 2017-10-29 12:27 | CODING QUERY NO DIAGNOSIS ---
Valid Physician Order Needed A valid physician order must be submitted in order to properly bill for the service(s) provided, including date of service(s), valid diagnosis, and physician signature. If these tests are done on a recurring basis the original physican order must be submitted in order to code and bill for the service(s) provided. Please fax us the original, signed physician order so that we may expedite billing to [phone] DOS 10/07/17 * UA CATH * URINE CULTURE CATH Thank you Silvina [facility] Information Management
== END | disposition home or self-care (01) ==
LOC: C.LABSPEC 13:14
PROVIDERS: ATTEND Internal Medicine
DX: N39.0 Urinary tract infection, site not specified (principal)

== ENCOUNTER → 2018-02-03 | Outpatient (CLI) | payer OTHER ==
[~2018-02-03] MED LIST changes: -AMLO-110 PO; +AMLO5TAB3 PO
== END | disposition home or self-care (01) ==
LOC: C.LABSPEC 14:50
PROVIDERS: ATTEND Internal Medicine
DX: N39.0 Urinary tract infection, site not specified (principal)

== ENCOUNTER → 2018-02-22 | Outpatient (CLI) | payer OTHER ==
[2018-02-22 13:50] LABS: BLOOD UREA NITROGEN 12 mg/dl (7-18); CALCIUM 8.2 mg/dl (8.5-10.1); CARBON DIOXIDE 30 mmol/L (21-32); CREATININE 0.68 mg/dl (0.60-1.20); GLUCOSE 101 mg/dl (70-99); SODIUM 137 mmol/L (136-145)
== END | disposition home or self-care (01) ==
LOC: C.LABSPEC 13:12
PROVIDERS: ATTEND Internal Medicine
DX: E87.6 Hypokalemia (principal)